=== PATIENT | female | born 1995 | race Hispanic/Latino ===

== ENCOUNTER → 2024-11-27 15:57 | Outpatient (CLI) | payer OTHER, SELFPAY ==
[2024-11-27 16:50] LABS: Add Manual Diff / Slide Review NO; Hematocrit 39.3 % (36-46); Hemoglobin 13.8 g/dL (12.0-16.0); Hemoglobin A1C% w Est Avg Glu 5.3 % (4.0-6.0); Lymphocytes Absolute Auto 2900 /uL (1100-4500); Mean Corpuscular HGB Conc 35.0 % (30-36); Mean Corpuscular Hemoglobin 29.4 PG (26-34); Mean Corpuscular Volume 84.1 fL (80-100); Platelet Count 299 X10^3/uL (150-400)
[2024-11-27 17:12] LABS: Blood Urea Nitrogen 10 mg/dL (7-17); Calcium 9.8 mg/dL (8.4-10.2); Carbon Dioxide 22 mmol/L (22-32); Chloride 102 mmol/L (98-107); Estimated Glomerular Filt Rate > 60 mL/min (>60); Glucose 93 mg/dL (70-99); HEMOLYSIS < 15 (0-50); Potassium 4.0 mmol/L (3.4-5.1); Sodium 136 mmol/L (137-145)
[2024-11-27 17:40] LABS: TSH w/ Reflex to FT4 3.32 uIU/mL (0.47-4.68)
== END ==
PROVIDERS: PCP Nurse Practitioner Family; Referring Provider Nurse Practitioner Family; Visit Provider Nurse Practitioner Family
DX: R35.89 Other polyuria (principal); R63.5 Abnormal weight gain; Z13.1 Encounter for screening for diabetes mellitus
CPT/HCPCS: 36415; 80048; 83036; 84443; 85025

== ENCOUNTER 2024-12-03 16:15 | Outpatient (RCR) | payer OTHER, SELFPAY ==
--- NOTE | 2024-07-22 16:56 | PT.OIE ---
Current Diagnoses Other sprain of left foot, subsequent encounter (07/22/24) Visit Care Team Role Provider Type Bethany Pedraza, SOLAR INSTALLATION HELPER-BC Attending Provider Advanced Inside Sales Engineer Primary Care Provider Referring Provider Specialty: Family Practice Address: [address] [place] [address], [id number] Phone: Fax: Email: [email or web address] Physical Therapy Initial Evaluation PT-OP-A Visit Information Start: 07/22/24 15:18 Freq: Status: Active Protocol: Document 07/22/24 15:19 WAREHOUSE PRODUCTION WORKER (Rec: 07/22/24 16:55 WAREHOUSE PRODUCTION WORKER Laptop) Out-Patient Physical Therapy Visit Information Visit Information Visit Type Initial Evaluation Visit Start Time 15:19 Visit Stop Time 16:15 Visit Number 1 Number of RECORD TABULATING CLERK Visits 0 Evaluation Information Evaluation Date 07/22/24 Precautions Precautions None PT-OP-B Current Condition Start: 07/22/24 15:18 Freq: Status: Active Protocol: Document 07/22/24 15:19 WAREHOUSE PRODUCTION WORKER (Rec: 07/22/24 16:55 WAREHOUSE PRODUCTION WORKER Laptop) Current Condition History of Current Condition Onset Date First sprain 2015, second sprain last year, third sprain last month Current Complaints L ankle pain and weakness History of Current Harriet amb into session without AD but wearing B ankle Condition boots, she reports wears boots for increased ankle support. Sprained my left foot 3 times now, last one was last month and I didn't do any exercises afterward. Has been doing day to day activities but unable to perform hobbies: slack lining, rock climbing, hiking, backpacking. Has been going to the gym and going up stairs which causes sharp pain at front of L foot while lifting toes up. Currently has sharp shooting pain in low back, reports back injury while in college with fall on stairs which took a while to recover from but never went to the doctor for it and is unsure if back pain and ankle injury are related. Treatment Goals Patient/Caregiver To strengthen my ankle and get some tips for how to Goals prevent future ankle sprains and how to decrease back pain. PT-OP-C Subjective Start: 07/22/24 15:18 Freq: Status: Active Protocol: Document 07/22/24 15:19 WAREHOUSE PRODUCTION WORKER (Rec: 07/22/24 16:55 WAREHOUSE PRODUCTION WORKER Laptop) Patient Questionnaires Lower Extremity Functional Scale LEFS Score 61/80 PT-OP-D Balance Start: 07/22/24 15:18 Freq: Status: Active Protocol: Document 07/22/24 15:19 WAREHOUSE PRODUCTION WORKER (Rec: 07/22/24 16:55 WAREHOUSE PRODUCTION WORKER Laptop) Balance Tests Single Limb Standing Single Limb- Right >1 min without instability Single Limb- Left 10s significant difficulty and lateral upper body sway/ reactions PT-OP-F Manual Assessment Start: 07/22/24 15:18 Freq: Status: Active Protocol: Document 07/22/24 15:19 WAREHOUSE PRODUCTION WORKER (Rec: 07/22/24 16:55 WAREHOUSE PRODUCTION WORKER Laptop) Manual Assessments Joint Mobility Assessment Joint Mobility Decreased PA of L talus at talocrural joint Assessment PT-OP-G Mobility & Gait Start: 07/22/24 15:18 Freq: Status: Active Protocol: Document 07/22/24 15:19 WAREHOUSE PRODUCTION WORKER (Rec: 07/22/24 16:55 WAREHOUSE PRODUCTION WORKER Laptop) OP Gait Assessment Comments Gait Comments Amb without AD, mild B knee varus, mild decreased pre swing on L PT-OP-K Range of Motion Start: 07/22/24 15:18 Freq: Status: Active Protocol: Document 07/22/24 15:19 WAREHOUSE PRODUCTION WORKER (Rec: 07/22/24 16:55 WAREHOUSE PRODUCTION WORKER Laptop) Hip Goniometric Range of Motion Hip ROM Limitations Hip ROM Limitations Soft Tissue Tightness Comments Baldev test: L 2.5 , R 2.5 Heel to butt: L 5.5, R 7.5 Ankle and Foot Goniometric Range of Motion Ankle and Foot L Testing Position Sitting Dorsiflexion with 0 Knee Extended Plantarflexion 34 Inversion 23 Eversion 15 R Testing Position Sitting Dorsiflexion with 5 Knee Extended Plantarflexion 47 Inversion 24 Eversion 17 PT-OP-M Strength Start: 07/22/24 15:18 Freq: Status: Active Protocol: Document 07/22/24 15:19 WAREHOUSE PRODUCTION WORKER (Rec: 07/22/24 16:55 WAREHOUSE PRODUCTION WORKER Laptop) Hip Strength Hip Manual Muscle Testing L Flexion (L2) 5 Normal Extension (S1) 4+ Good+ Abduction 4 Good R Flexion (L2) 4+ Good+ Extension (S1) 5 Normal Abduction 4 Good Knee Strength Knee Manual Muscle Testing L Flexion (S2) 4- Good- Extension (L3) 4+ Good+ R Flexion (S2) 4 Good Extension (L3) 5 Normal Ankle/Foot Strength Ankle and Foot Manual Muscle Testing L Dorsiflexion (L4) 4+ Good+ Inversion 4+ Good+ Eversion (S1) 4 Good R Dorsiflexion (L4) 5 Normal Inversion 5 Normal Eversion (S1) 5 Normal PT-OP-Q Treatments Start: 07/22/24 15:18 Freq: Status: Active Protocol: Document 07/22/24 15:19 WAREHOUSE PRODUCTION WORKER (Rec: 07/22/24 16:55 WAREHOUSE PRODUCTION WORKER Laptop) Therapeutic Exercises Standing Exercises Heel Raises Side bilateral Resistance body weight Reps/Minutes x15 BLEs Comments Added to HEP Stretch Standing Exercise 1. Quad stretch prop on chair 2. Gastroc runner's Name stretch Side bilateral Reps/Minutes 60s Comments Added to HEP, pain with L gastroc stretch at ant ankle PT-OP-T Assessment and Plan Start: 07/22/24 15:18 Freq: Status: Active Protocol: Document 07/22/24 15:19 WAREHOUSE PRODUCTION WORKER (Rec: 07/22/24 16:55 WAREHOUSE PRODUCTION WORKER Laptop) Physical Therapy Assessment Rehab Potential Rehabilitation Excellent Potential Evaluation Complexity Number of Personal 1-2 Factors/ Comorbidities Number of Body 3 Systems Impaired Clinical Stable Presentation at Evaluation Impairments Impairments Balance,Functional Activities,Functional Mobility,Gait, Pain,ROM,Soft Tissue Mobility,Strength Goals ROM Impairment ROM Impairment L ankle ROM Short Term Goal (STG Pt will improve L active DF from 0 degrees to 5 degrees ) to improve function STG Duration 6 weeks Back Shoe Cutter Goal (LTG) Pt will improve B active DF to 10 degrees for improved function LTG Duration 12 weeks 2 Impairment Strength Impairment BLE strength Short Term Goal (STG Pt will improve B hip abd strength, B hamstring ) strength, and L foot eversion to at least 4+/5 STG Duration 6 weeks Back Shoe Cutter Goal (LTG) Pt will amb 0.5 miles on 7% grade at 1.5 speed on treadmill without rest break without pain in L ankle to return to hiking. LTG Duration 12 weeks 1 Impairment Balance Impairment B SLS Short Term Goal (STG Pt will demonstrate improved balance and proprioception ) with L SLS on even floor for 60s to improve function and safety STG Duration 6 weeks Usp Goal (LTG) Pt will demonstrate improved balance and proprioception with L SLS on foam for 60s without upper body sway for improved function. LTG Duration 12 weeks Assessment Summary Assessment Pt presents to PT after 3 left ankle sprains with complaints of left ankle weakness and pain with excessive dorsiflexion and has been limited from performing hobbies such as hiking and backpacking, rock climbing, and slack lining. Pt found to have decreased strength of left ankle eversion, bilateral hamstrings, and bilateral hip abductors Pt also found to have decreased range of motion of L ankle dorsiflexion and plantarflexion and decreased bilateral quad length R>L and hamstring length. Pt also found to have decreased joint mobility of left talocrural joint and significantly decreased balance/proprioception to left ankle. Pt will highly benefit from skilled PT intervention to address deficits and improve function for return to hobby and prevent future injury. Physical Therapy Plan Frequency and Duration Frequency of 2x/Week Treatment Duration of 12 treatment (weeks) Plan of Care Start 07/22/24 Date Plan of Care End 10/14/24 Date Therapeutic Interventions Therapeutic Balance Training,Gait Training,Home Exercise Program, Interventions Joint Mobilizations,Manual Therapy,Neuromuscular Re- education,Soft Tissue Mobilization,Taping,Therapeutic Activities,Therapeutic Exercises Modalities Cold Pack/Ice Massage,Hot Packs,Ultrasound Next Visit Focus/Plan Next Note Type Treatment Note Next Visit Plan Assess HS length, HEP strengthening, gait, and stairs
--- NOTE | 2024-07-24 18:14 | PT.OTN ---
Current Diagnoses Other sprain of left foot, subsequent encounter (07/24/24) Physical Therapy Treatment Note PT-OP-A Visit Information Start: 07/22/24 15:18 Freq: Status: Active Protocol: Document 07/24/24 15:26 TOOL CRIB ATTENDANT (Rec: 07/24/24 16:12 TOOL CRIB ATTENDANT Laptop) Out-Patient Physical Therapy Visit Information Visit Information Visit Type Treatment Note Visit Start Time 15:22 Visit Stop Time 16:03 Visit Number 2 Number of WELDER TECH Visits 0 Evaluation Information Evaluation Date 07/22/24 Precautions Precautions None PT-OP-B Current Condition Start: 07/22/24 15:18 Freq: Status: Active Protocol: Document 07/22/24 15:19 TOOL CRIB ATTENDANT (Rec: 07/22/24 16:55 TOOL CRIB ATTENDANT Laptop) Current Condition History of Current Condition Onset Date First sprain 2015, second sprain last year, third sprain last month Current Complaints L ankle pain and weakness History of Current Harriet amb into session without AD but wearing B ankle Condition boots, she reports wears boots for increased ankle support. Sprained my left foot 3 times now, last one was last month and I didn't do any exercises afterward. Has been doing day to day activities but unable to perform hobbies: slack lining, rock climbing, hiking, backpacking. Has been going to the gym and going up stairs which causes sharp pain at front of L foot while lifting toes up. Currently has sharp shooting pain in low back, reports back injury while in college with fall on stairs which took a while to recover from but never went to the doctor for it and is unsure if back pain and ankle injury are related. Treatment Goals Patient/Caregiver To strengthen my ankle and get some tips for how to Goals prevent future ankle sprains and how to decrease back pain. PT-OP-C Subjective Start: 07/22/24 15:18 Freq: Status: Active Protocol: Document 07/24/24 15:26 TOOL CRIB ATTENDANT (Rec: 07/24/24 16:12 TOOL CRIB ATTENDANT Laptop) OP-PT Subjective Patient Comments Patient Comments Pt reports gastroc stretch against wall is painful to ant ankle but seems to get better with stretch. PT-OP-D Balance Start: 07/22/24 15:18 Freq: Status: Active Protocol: Document 07/22/24 15:19 TOOL CRIB ATTENDANT (Rec: 07/22/24 16:55 TOOL CRIB ATTENDANT Laptop) Balance Tests Single Limb Standing Single Limb- Right >1 min without instability Single Limb- Left 10s significant difficulty and lateral upper body sway/ reactions PT-OP-F Manual Assessment Start: 07/22/24 15:18 Freq: Status: Active Protocol: Document 07/22/24 15:19 TOOL CRIB ATTENDANT (Rec: 07/22/24 16:55 TOOL CRIB ATTENDANT Laptop) Manual Assessments Joint Mobility Assessment Joint Mobility Decreased PA of L talus at talocrural joint Assessment PT-OP-G Mobility & Gait Start: 07/22/24 15:18 Freq: Status: Active Protocol: Document 07/22/24 15:19 TOOL CRIB ATTENDANT (Rec: 07/22/24 16:55 TOOL CRIB ATTENDANT Laptop) OP Gait Assessment Comments Gait Comments Amb without AD, mild B knee varus, mild decreased pre swing on L PT-OP-K Range of Motion Start: 07/22/24 15:18 Freq: Status: Active Protocol: Document 07/22/24 15:19 TOOL CRIB ATTENDANT (Rec: 07/22/24 16:55 TOOL CRIB ATTENDANT Laptop) Hip Goniometric Range of Motion Hip ROM Limitations Hip ROM Limitations Soft Tissue Tightness Comments Baldev test: L 2.5 , R 2.5 Heel to butt: L 5.5, R 7.5 Ankle and Foot Goniometric Range of Motion Ankle and Foot L Testing Position Sitting Dorsiflexion with 0 Knee Extended Plantarflexion 34 Inversion 23 Eversion 15 R Testing Position Sitting Dorsiflexion with 5 Knee Extended Plantarflexion 47 Inversion 24 Eversion 17 PT-OP-M Strength Start: 07/22/24 15:18 Freq: Status: Active Protocol: Document 07/22/24 15:19 TOOL CRIB ATTENDANT (Rec: 07/22/24 16:55 TOOL CRIB ATTENDANT Laptop) Hip Strength Hip Manual Muscle Testing L Flexion (L2) 5 Normal Extension (S1) 4+ Good+ Abduction 4 Good R Flexion (L2) 4+ Good+ Extension (S1) 5 Normal Abduction 4 Good Knee Strength Knee Manual Muscle Testing L Flexion (S2) 4- Good- Extension (L3) 4+ Good+ R Flexion (S2) 4 Good Extension (L3) 5 Normal Ankle/Foot Strength Ankle and Foot Manual Muscle Testing L Dorsiflexion (L4) 4+ Good+ Inversion 4+ Good+ Eversion (S1) 4 Good R Dorsiflexion (L4) 5 Normal Inversion 5 Normal Eversion (S1) 5 Normal PT-OP-Q Treatments Start: 07/22/24 15:18 Freq: Status: Active Protocol: Document 07/24/24 15:26 TOOL CRIB ATTENDANT (Rec: 07/24/24 16:12 TOOL CRIB ATTENDANT Laptop) Therapeutic Exercises Sitting Exercises Towel Scrunch Sitting Exercise Intrinsic foot muscle strengthening Name Side left Reps/Minutes 10x2 4-way ankle Sitting Exercise DF, eversion, PF, inversion Name Side left Resistance L1 TB Reps/Minutes x10 without resist, x10 with TB Comments Added to HEP Manual Therapy Treatment Consent Patient gave verbal Yes consent for manual treatment Soft Tissue Mobilization Ankle Body Location lateral ankle Mobilization Type Instrument Assisted Intensity/Depth Moderate Body Position Supine Comments fibularis longus/brevis tendons and retinaculum Joint Mobilizations Talus Joint Talocrural Direction Ant>post Grade IV Body Position half kneel Reps/Duration 15x3 Comments Passive closed chain DF using hammer and tool to mobilize at points of restrictions and pain at ant/ medial/and lateral talus PT-OP-T Assessment and Plan Start: 07/22/24 15:18 Freq: Status: Active Protocol: Document 07/24/24 15:26 TOOL CRIB ATTENDANT (Rec: 07/24/24 16:12 TOOL CRIB ATTENDANT Laptop) Physical Therapy Assessment Impairments Impairments Balance,Functional Activities,Functional Mobility,Gait, Pain,ROM,Soft Tissue Mobility,Strength Goals ROM Impairment ROM Impairment L ankle ROM Short Term Goal (STG Pt will improve L active DF from 0 degrees to 5 degrees ) to improve function STG Duration 6 weeks Industrial Yard Brake Coupler Goal (LTG) Pt will improve B active DF to 10 degrees for improved function LTG Duration 12 weeks 2 Impairment Strength Impairment BLE strength Short Term Goal (STG Pt will improve B hip abd strength, B hamstring ) strength, and L foot eversion to at least 4+/5 STG Duration 6 weeks Industrial Yard Brake Coupler Goal (LTG) Pt will amb 0.5 miles on 7% grade at 1.5 speed on treadmill without rest break without pain in L ankle to return to hiking. LTG Duration 12 weeks 1 Impairment Balance Impairment B SLS Short Term Goal (STG Pt will demonstrate improved balance and proprioception ) with L SLS on even floor for 60s to improve function and safety STG Duration 6 weeks Long-Term Goal (LTG) Pt will demonstrate improved balance and proprioception with L SLS on foam for 60s without upper body sway for improved function. LTG Duration 12 weeks Progress Towards Goals Progress Towards Progressing Toward Goals Goals Assessment Summary Assessment Pt tolerated ankle exercises well with HEP given, noted improvement in DF after talus mobilizations and STM to achilles and medial and lateral post ankle. Physical Therapy Plan Frequency and Duration Frequency of 2x/Week Treatment Duration of 12 treatment (weeks) Plan of Care Start 07/22/24 Date Plan of Care End 10/14/24 Date Therapeutic Interventions Therapeutic Balance Training,Gait Training,Home Exercise Program, Interventions Joint Mobilizations,Manual Therapy,Neuromuscular Re- education,Soft Tissue Mobilization,Taping,Therapeutic Activities,Therapeutic Exercises Modalities Cold Pack/Ice Massage,Hot Packs,Ultrasound Next Visit Focus/Plan Next Note Type Treatment Note Next Visit Plan HEP hip strengthening, talus mobs with tool, STM to achilles and lateral to achilles, assess HS length, gait assess, stairs
--- NOTE | 2024-07-28 22:34 | PT.OTN ---
Current Diagnoses Other sprain of left foot, subsequent encounter (07/28/24) Physical Therapy Treatment Note PT-OP-A Visit Information Start: 07/22/24 15:18 Freq: Status: Active Protocol: Document 07/28/24 22:17 MANAGER ARMY (Rec: 07/28/24 22:34 MANAGER ARMY Laptop) Out-Patient Physical Therapy Visit Information Visit Information Visit Type Treatment Note Visit Start Time 15:35 Visit Stop Time 16:15 Visit Number 3 Number of STITCHING MACHINE SETTER Visits 0 Evaluation Information Evaluation Date 07/22/24 Precautions Precautions None PT-OP-B Current Condition Start: 07/22/24 15:18 Freq: Status: Active Protocol: Document 07/22/24 15:19 MANAGER ARMY (Rec: 07/22/24 16:55 MANAGER ARMY Laptop) Current Condition History of Current Condition Onset Date First sprain 2015, second sprain last year, third sprain last month Current Complaints L ankle pain and weakness History of Current Harriet amb into session without AD but wearing B ankle Condition boots, she reports wears boots for increased ankle support. Sprained my left foot 3 times now, last one was last month and I didn't do any exercises afterward. Has been doing day to day activities but unable to perform hobbies: slack lining, rock climbing, hiking, backpacking. Has been going to the gym and going up stairs which causes sharp pain at front of L foot while lifting toes up. Currently has sharp shooting pain in low back, reports back injury while in college with fall on stairs which took a while to recover from but never went to the doctor for it and is unsure if back pain and ankle injury are related. Treatment Goals Patient/Caregiver To strengthen my ankle and get some tips for how to Goals prevent future ankle sprains and how to decrease back pain. PT-OP-C Subjective Start: 07/22/24 15:18 Freq: Status: Active Protocol: Document 07/28/24 22:17 MANAGER ARMY (Rec: 07/28/24 22:34 MANAGER ARMY Laptop) OP-PT Subjective Patient Comments Patient Comments Pt reports ankle exercises are getting a little easier, still reports calf stretch is painful to ant foot PT-OP-D Balance Start: 07/22/24 15:18 Freq: Status: Active Protocol: Document 07/22/24 15:19 MANAGER ARMY (Rec: 07/22/24 16:55 MANAGER ARMY Laptop) Balance Tests Single Limb Standing Single Limb- Right >1 min without instability Single Limb- Left 10s significant difficulty and lateral upper body sway/ reactions PT-OP-F Manual Assessment Start: 07/22/24 15:18 Freq: Status: Active Protocol: Document 07/22/24 15:19 MANAGER [employer]MY (Rec: 07/22/24 16:55 MANAGER ARMY Laptop) Manual Assessments Joint Mobility Assessment Joint Mobility Decreased PA of L talus at talocrural joint Assessment PT-OP-G Mobility & Gait Start: 07/22/24 15:18 Freq: Status: Active Protocol: Document 07/22/24 15:19 MANAGER [employer]MY (Rec: 07/22/24 16:55 MANAGER ARMY Laptop) OP Gait Assessment Comments Gait Comments Amb without AD, mild B knee varus, mild decreased pre swing on L PT-OP-K Range of Motion Start: 07/22/24 15:18 Freq: Status: Active Protocol: Document 07/22/24 15:19 MANAGER ARMY (Rec: 07/22/24 16:55 MANAGER ARMY Laptop) Hip Goniometric Range of Motion Hip ROM Limitations Hip ROM Limitations Soft Tissue Tightness Comments Baldev test: L 2.5 , R 2.5 Heel to butt: L 5.5, R 7.5 Ankle and Foot Goniometric Range of Motion Ankle and Foot L Testing Position Sitting Dorsiflexion with 0 Knee Extended Plantarflexion 34 Inversion 23 Eversion 15 R Testing Position Sitting Dorsiflexion with 5 Knee Extended Plantarflexion 47 Inversion 24 Eversion 17 PT-OP-M Strength Start: 07/22/24 15:18 Freq: Status: Active Protocol: Document 07/22/24 15:19 MANAGER ARMY (Rec: 07/22/24 16:55 MANAGER ARMY Laptop) Hip Strength Hip Manual Muscle Testing L Flexion (L2) 5 Normal Extension (S1) 4+ Good+ Abduction 4 Good R Flexion (L2) 4+ Good+ Extension (S1) 5 Normal Abduction 4 Good Knee Strength Knee Manual Muscle Testing L Flexion (S2) 4- Good- Extension (L3) 4+ Good+ R Flexion (S2) 4 Good Extension (L3) 5 Normal Ankle/Foot Strength Ankle and Foot Manual Muscle Testing L Dorsiflexion (L4) 4+ Good+ Inversion 4+ Good+ Eversion (S1) 4 Good R Dorsiflexion (L4) 5 Normal Inversion 5 Normal Eversion (S1) 5 Normal PT-OP-Q Treatments Start: 07/22/24 15:18 Freq: Status: Active Protocol: Document 07/28/24 22:17 MANAGER ARMY (Rec: 07/28/24 22:34 MANAGER ARMY Laptop) Therapeutic Exercises Sitting Exercises Talus Self Mobs Sitting Exercise Passive DF with self mob of TB at taus Name Side left Resistance L2 TB Reps/Minutes x10 Comments Added to HEP Towel Scrunch Sitting Exercise Intrinsic foot muscle strengthening Name Side left Reps/Minutes 10x2 Comments Added to HEP Manual Therapy Treatment Consent Patient gave verbal Yes consent for manual treatment Joint Mobilizations Navicular Direction lateral glide Grade IV Body Position half kneel Reps/Duration 10x2 Comments foot secured on half foam roller into inversion with calcaneus anchored, lateral glide of navicular with hip ER Calcaneus Direction lateral to medial Grade IV Body Position Sidelying Reps/Duration x10 Comments over half foam roller to reduce ankle valgus Tibia Direction post Grade IV Body Position half kneel Reps/Duration 10x2 Comments Passive closed chain DF with blocking of ant translation of lateral distal tibia Talus Joint Talocrural Direction Ant>post Grade IV Body Position half kneel Reps/Duration 15x3 Comments Passive closed chain DF using hammer and tool to mobilize at points of restrictions and pain at ant/ medial/and lateral talus PT-OP-T Assessment and Plan Start: 07/22/24 15:18 Freq: Status: Active Protocol: Document 07/28/24 22:17 MANAGER ARMY (Rec: 07/28/24 22:34 MANAGER ARMY Laptop) Physical Therapy Assessment Impairments Impairments Balance,Functional Activities,Functional Mobility,Gait, Pain,ROM,Soft Tissue Mobility,Strength Goals ROM Impairment ROM Impairment L ankle ROM Short Term Goal (STG Pt will improve L active DF from 0 degrees to 5 degrees ) to improve function STG Duration 6 weeks Alf Goal (LTG) Pt will improve B active DF to 10 degrees for improved function LTG Duration 12 weeks 2 Impairment Strength Impairment BLE strength Short Term Goal (STG Pt will improve B hip abd strength, B hamstring ) strength, and L foot eversion to at least 4+/5 STG Duration 6 weeks Alf Goal (LTG) Pt will amb 0.5 miles on 7% grade at 1.5 speed on treadmill without rest break without pain in L ankle to return to hiking. LTG Duration 12 weeks 1 Impairment Balance Impairment B SLS Short Term Goal (STG Pt will demonstrate improved balance and proprioception ) with L SLS on even floor for 60s to improve function and safety STG Duration 6 weeks Alf Goal (LTG) Pt will demonstrate improved balance and proprioception with L SLS on foam for 60s without upper body sway for improved function. LTG Duration 12 weeks Progress Towards Goals Progress Towards Progressing Toward Goals Goals Assessment Summary Assessment Pt tolerated session well focused on mobilizations to talus, navicular, calcaneus, and tiba with improved DF from 5 degrees passive to 14 degrees passive at end of session. Physical Therapy Plan Frequency and Duration Frequency of 2x/Week Treatment Duration of 12 treatment (weeks) Plan of Care Start 07/22/24 Date Plan of Care End 10/14/24 Date Therapeutic Interventions Therapeutic Balance Training,Gait Training,Home Exercise Program, Interventions Joint Mobilizations,Manual Therapy,Neuromuscular Re- education,Soft Tissue Mobilization,Taping,Therapeutic Activities,Therapeutic Exercises Modalities Cold Pack/Ice Massage,Hot Packs,Ultrasound Next Visit Focus/Plan Next Note Type Treatment Note Next Visit Plan HEP hip strengthening, talus mobs with tool, calcaneal mob into valgus, navicular lateral mobs, taping for decreased edema
--- NOTE | 2024-07-30 20:37 | PT.OTN ---
Current Diagnoses Other sprain of left foot, subsequent encounter (07/30/24) Physical Therapy Treatment Note PT-OP-A Visit Information Start: 07/22/24 15:18 Freq: Status: Active Protocol: Document 07/30/24 20:21 UNSCRAMBLER (Rec: 07/30/24 20:37 UNSCRAMBLER Laptop) Out-Patient Physical Therapy Visit Information Visit Information Visit Type Treatment Note Visit Start Time 15:20 Visit Stop Time 16:20 Visit Number 4 Number of SR. SOCIAL MEDIA & MOBILE MANAGER Visits 0 Evaluation Information Evaluation Date 07/22/24 Precautions Precautions None PT-OP-B Current Condition Start: 07/22/24 15:18 Freq: Status: Active Protocol: Document 07/22/24 15:19 UNSCRAMBLER (Rec: 07/22/24 16:55 UNSCRAMBLER Laptop) Current Condition History of Current Condition Onset Date First sprain 2015, second sprain last year, third sprain last month Current Complaints L ankle pain and weakness History of Current Harriet amb into session without AD but wearing B ankle Condition boots, she reports wears boots for increased ankle support. Sprained my left foot 3 times now, last one was last month and I didn't do any exercises afterward. Has been doing day to day activities but unable to perform hobbies: slack lining, rock climbing, hiking, backpacking. Has been going to the gym and going up stairs which causes sharp pain at front of L foot while lifting toes up. Currently has sharp shooting pain in low back, reports back injury while in college with fall on stairs which took a while to recover from but never went to the doctor for it and is unsure if back pain and ankle injury are related. Treatment Goals Patient/Caregiver To strengthen my ankle and get some tips for how to Goals prevent future ankle sprains and how to decrease back pain. PT-OP-C Subjective Start: 07/22/24 15:18 Freq: Status: Active Protocol: Document 07/30/24 20:21 UNSCRAMBLER (Rec: 07/30/24 20:37 UNSCRAMBLER Laptop) OP-PT Subjective Patient Comments Patient Comments Pt reports L ant medial foot has felt more stiff and painful after last session but this morning felt a little more ROM in DF. Current pain 2/ PT-OP-D Balance Start: 07/22/24 15:18 Freq: Status: Active Protocol: Document 07/22/24 15:19 UNSCRAMBLER (Rec: 07/22/24 16:55 UNSCRAMBLER Laptop) Balance Tests Single Limb Standing Single Limb- Right >1 min without instability Single Limb- Left 10s significant difficulty and lateral upper body sway/ reactions PT-OP-F Manual Assessment Start: 07/22/24 15:18 Freq: Status: Active Protocol: Document 07/22/24 15:19 UNSCRAMBLER (Rec: 07/22/24 16:55 UNSCRAMBLER Laptop) Manual Assessments Joint Mobility Assessment Joint Mobility Decreased PA of L talus at talocrural joint Assessment PT-OP-G Mobility & Gait Start: 07/22/24 15:18 Freq: Status: Active Protocol: Document 07/22/24 15:19 UNSCRAMBLER (Rec: 07/22/24 16:55 UNSCRAMBLER Laptop) OP Gait Assessment Comments Gait Comments Amb without AD, mild B knee varus, mild decreased pre swing on L PT-OP-K Range of Motion Start: 07/22/24 15:18 Freq: Status: Active Protocol: Document 07/22/24 15:19 UNSCRAMBLER (Rec: 07/22/24 16:55 UNSCRAMBLER Laptop) Hip Goniometric Range of Motion Hip ROM Limitations Hip ROM Limitations Soft Tissue Tightness Comments Baldev test: L 2.5 , R 2.5 Heel to butt: L 5.5, R 7.5 Ankle and Foot Goniometric Range of Motion Ankle and Foot L Testing Position Sitting Dorsiflexion with 0 Knee Extended Plantarflexion 34 Inversion 23 Eversion 15 R Testing Position Sitting Dorsiflexion with 5 Knee Extended Plantarflexion 47 Inversion 24 Eversion 17 PT-OP-M Strength Start: 07/22/24 15:18 Freq: Status: Active Protocol: Document 07/22/24 15:19 UNSCRAMBLER (Rec: 07/22/24 16:55 UNSCRAMBLER Laptop) Hip Strength Hip Manual Muscle Testing L Flexion (L2) 5 Normal Extension (S1) 4+ Good+ Abduction 4 Good R Flexion (L2) 4+ Good+ Extension (S1) 5 Normal Abduction 4 Good Knee Strength Knee Manual Muscle Testing L Flexion (S2) 4- Good- Extension (L3) 4+ Good+ R Flexion (S2) 4 Good Extension (L3) 5 Normal Ankle/Foot Strength Ankle and Foot Manual Muscle Testing L Dorsiflexion (L4) 4+ Good+ Inversion 4+ Good+ Eversion (S1) 4 Good R Dorsiflexion (L4) 5 Normal Inversion 5 Normal Eversion (S1) 5 Normal PT-OP-Q Treatments Start: 07/22/24 15:18 Freq: Status: Active Protocol: Document 07/30/24 20:21 UNSCRAMBLER (Rec: 07/30/24 20:37 UNSCRAMBLER Laptop) Manual Therapy Treatment Consent Patient gave verbal Yes consent for manual treatment Soft Tissue Mobilization Plantar fascia Body Location L Mobilization Type Instrument Assisted Intensity/Depth Moderate Body Position Prone Comments mod-high amounts of crepitus over fascia improved with tool Joint Mobilizations Tibia Joint tib and fib Direction post tib and ant fib Grade III Body Position half kneel Reps/Duration x10 Comments passive closed chain DF with blocking of medial malleolus and ant mob of lateral malleolus Talus Joint Talocrural Direction Ant>post Grade IV Body Position Supine Reps/Duration 10x2 Comments passive open chain DF while performing manual mobs Taping Edema Body Location L ant and lateral ankle Treatment Focus edema method Type of Tape KT Comments 1st strip: 1 anchor piece above talocrural joint lint with 4 strips without tension wrapping ant foot over areas of increased edema 2nd strip: cut same as 1st and anchored at medial ankle and crossing over 1st strip over areas of edema PT-OP-T Assessment and Plan Start: 07/22/24 15:18 Freq: Status: Active Protocol: Document 07/30/24 20:21 UNSCRAMBLER (Rec: 07/30/24 20:37 UNSCRAMBLER Laptop) Physical Therapy Assessment Impairments Impairments Balance,Functional Activities,Functional Mobility,Gait, Pain,ROM,Soft Tissue Mobility,Strength Goals ROM Impairment ROM Impairment L ankle ROM Short Term Goal (STG Pt will improve L active DF from 0 degrees to 5 degrees ) to improve function STG Duration 6 weeks Residential Goal (LTG) Pt will improve B active DF to 10 degrees for improved function LTG Duration 12 weeks 2 Impairment Strength Impairment BLE strength Short Term Goal (STG Pt will improve B hip abd strength, B hamstring ) strength, and L foot eversion to at least 4+/5 STG Duration 6 weeks Residential Goal (LTG) Pt will amb 0.5 miles on 7% grade at 1.5 speed on treadmill without rest break without pain in L ankle to return to hiking. LTG Duration 12 weeks 1 Impairment Balance Impairment B SLS Short Term Goal (STG Pt will demonstrate improved balance and proprioception ) with L SLS on even floor for 60s to improve function and safety STG Duration 6 weeks Slip Cover Estimator Goal (LTG) Pt will demonstrate improved balance and proprioception with L SLS on foam for 60s without upper body sway for improved function. LTG Duration 12 weeks Progress Towards Goals Progress Towards Progressing Toward Goals Goals Assessment Summary Assessment Pt with improved passive DF from 15 degrees to 18 degrees after tibia and fibular mobilizations. Slight increased edema than last session, KT taping added for edema control to improve ROM. Physical Therapy Plan Frequency and Duration Frequency of 2x/Week Treatment Duration of 12 treatment (weeks) Plan of Care Start 07/22/24 Date Plan of Care End 10/14/24 Date Therapeutic Interventions Therapeutic Balance Training,Gait Training,Home Exercise Program, Interventions Joint Mobilizations,Manual Therapy,Neuromuscular Re- education,Soft Tissue Mobilization,Taping,Therapeutic Activities,Therapeutic Exercises Modalities Cold Pack/Ice Massage,Hot Packs,Ultrasound Next Visit Focus/Plan Next Note Type Treatment Note Next Visit Plan HEP hip strengthening, talus mobs with tool, calcaneal mob into valgus, navicular lateral mobs, taping for decreased edema, arch training exercises
--- NOTE | 2024-08-04 12:22 | PT.OTN ---
Current Diagnoses Other sprain of left foot, subsequent encounter (08/04/24) Physical Therapy Treatment Note PT-OP-A Visit Information Start: 07/22/24 15:18 Freq: Status: Active Protocol: Document 08/04/24 11:36 AB (Rec: 08/04/24 12:22 AB Laptop) Out-Patient Physical Therapy Visit Information Visit Information Visit Type Treatment Note Visit Note Access Code: [email or web address] Visit Start Time 11:36 Visit Stop Time 12:20 Visit Number 5 Number of NURSE CASE MANAGER Visits 1 PT-OP-B Current Condition Start: 07/22/24 15:18 Freq: Status: Active Protocol: Document 07/22/24 15:19 BIG DATA HADOOP DEVELOPER (Rec: 07/22/24 16:55 BIG DATA HADOOP DEVELOPER Laptop) Current Condition History of Current Condition Onset Date First sprain 2015, second sprain last year, third sprain last month Current Complaints L ankle pain and weakness History of Current Harriet amb into session without AD but wearing B ankle Condition boots, she reports wears boots for increased ankle support. Sprained my left foot 3 times now, last one was last month and I didn't do any exercises afterward. Has been doing day to day activities but unable to perform hobbies: slack lining, rock climbing, hiking, backpacking. Has been going to the gym and going up stairs which causes sharp pain at front of L foot while lifting toes up. Currently has sharp shooting pain in low back, reports back injury while in college with fall on stairs which took a while to recover from but never went to the doctor for it and is unsure if back pain and ankle injury are related. Treatment Goals Patient/Caregiver To strengthen my ankle and get some tips for how to Goals prevent future ankle sprains and how to decrease back pain. PT-OP-C Subjective Start: 07/22/24 15:18 Freq: Status: Active Protocol: Document 08/04/24 11:36 AB (Rec: 08/04/24 12:22 AB Laptop) OP-PT Subjective Patient Comments Patient Comments Patient reports, pain, strength and mobility are a little better. Patient rates pain 1/10 ambulating into session without device. SLS 15 + sec with LOB post 15 sec with head turn immediately, ipsilateral trunk side bed intermittent first 5-10 sec. PT-OP-D Balance Start: 07/22/24 15:18 Freq: Status: Active Protocol: Document 07/22/24 15:19 BIG DATA HADOOP DEVELOPER (Rec: 07/22/24 16:55 BIG DATA HADOOP DEVELOPER Laptop) Balance Tests Single Limb Standing Single Limb- Right >1 min without instability Single Limb- Left 10s significant difficulty and lateral upper body sway/ reactions PT-OP-F Manual Assessment Start: 07/22/24 15:18 Freq: Status: Active Protocol: Document 07/22/24 15:19 BIG DATA HADOOP DEVELOPER (Rec: 07/22/24 16:55 BIG DATA HADOOP DEVELOPER Laptop) Manual Assessments Joint Mobility Assessment Joint Mobility Decreased PA of L talus at talocrural joint Assessment PT-OP-G Mobility & Gait Start: 07/22/24 15:18 Freq: Status: Active Protocol: Document 07/22/24 15:19 BIG DATA HADOOP DEVELOPER (Rec: 07/22/24 16:55 BIG DATA HADOOP DEVELOPER Laptop) OP Gait Assessment Comments Gait Comments Amb without AD, mild B knee varus, mild decreased pre swing on L PT-OP-K Range of Motion Start: 07/22/24 15:18 Freq: Status: Active Protocol: Document 07/22/24 15:19 BIG DATA HADOOP DEVELOPER (Rec: 07/22/24 16:55 BIG DATA HADOOP DEVELOPER Laptop) Hip Goniometric Range of Motion Hip ROM Limitations Hip ROM Limitations Soft Tissue Tightness Comments Baldev test: L 2.5 , R 2.5 Heel to butt: L 5.5, R 7.5 Ankle and Foot Goniometric Range of Motion Ankle and Foot L Testing Position Sitting Dorsiflexion with 0 Knee Extended Plantarflexion 34 Inversion 23 Eversion 15 R Testing Position Sitting Dorsiflexion with 5 Knee Extended Plantarflexion 47 Inversion 24 Eversion 17 PT-OP-M Strength Start: 07/22/24 15:18 Freq: Status: Active Protocol: Document 07/22/24 15:19 BIG DATA HADOOP DEVELOPER (Rec: 07/22/24 16:55 BIG DATA HADOOP DEVELOPER Laptop) Hip Strength Hip Manual Muscle Testing L Flexion (L2) 5 Normal Extension (S1) 4+ Good+ Abduction 4 Good R Flexion (L2) 4+ Good+ Extension (S1) 5 Normal Abduction 4 Good Knee Strength Knee Manual Muscle Testing L Flexion (S2) 4- Good- Extension (L3) 4+ Good+ R Flexion (S2) 4 Good Extension (L3) 5 Normal Ankle/Foot Strength Ankle and Foot Manual Muscle Testing L Dorsiflexion (L4) 4+ Good+ Inversion 4+ Good+ Eversion (S1) 4 Good R Dorsiflexion (L4) 5 Normal Inversion 5 Normal Eversion (S1) 5 Normal PT-OP-Q Treatments Start: 07/22/24 15:18 Freq: Status: Active Protocol: Document 08/04/24 11:36 AB (Rec: 08/04/24 12:22 AB Laptop) Therapeutic Exercises Sitting Exercises AROM DF Reps/Minutes X 15 Comments verbal and visual cues Standing Exercises Glute med isometric Standing Exercise HEP Name Side bilateral Reps/Minutes one min each side Comments verbal and visual cues squat Standing Exercise HEP Name Side bilateral Reps/Minutes X 10 X 2 send set with level 4 band above knees Comments Hip hinge training, self tact cues for hip hinge Stretch Standing Exercise gastroc and soleus on stairs Name Side bilateral Reps/Minutes 60s x 2 each LE Comments post manual Manual Therapy Treatment Consent Patient gave verbal Yes consent for manual treatment Soft Tissue Mobilization Ankle Body Location L calf muscles Mobilization Type Cross-Friction,Instrument Assisted,Rolling Intensity/Depth Moderate Body Position Prone Comments and standing AROM DF PF prone with cupping and with heel raises on step Joint Mobilizations Tibia Joint tib and fib Direction post tib and ant fib Grade III Body Position seated Reps/Duration x10 seated and X 10 stand Talus Joint MWM TC mob X 10 then X 5 Direction ant to post Grade IV PT-OP-T Assessment and Plan Start: 07/22/24 15:18 Freq: Status: Active Protocol: Document 08/04/24 11:36 AB (Rec: 08/04/24 12:22 AB Laptop) Physical Therapy Assessment Goals ROM Impairment ROM Impairment L ankle ROM Short Term Goal (STG Pt will improve L active DF from 0 degrees to 5 degrees ) to improve function STG Duration 6 weeks Mcc Goal (LTG) Pt will improve B active DF to 10 degrees for improved function LTG Duration 12 weeks 2 Impairment Strength Impairment BLE strength Short Term Goal (STG Pt will improve B hip abd strength, B hamstring ) strength, and L foot eversion to at least 4+/5 STG Duration 6 weeks Mcc Goal (LTG) Pt will amb 0.5 miles on 7% grade at 1.5 speed on treadmill without rest break without pain in L ankle to return to hiking. LTG Duration 12 weeks 1 Impairment Balance Impairment B SLS Short Term Goal (STG Pt will demonstrate improved balance and proprioception ) with L SLS on even floor for 60s to improve function and safety STG Duration 6 weeks Associate Professor Computer Science Goal (LTG) Pt will demonstrate improved balance and proprioception with L SLS on foam for 60s without upper body sway for improved function. LTG Duration 12 weeks Assessment Summary Assessment Patient reports ankle pain continues to be 1/10 ambulating out of session L LE, comments she can feel it in her glutes. Noted immed LOB with head turns attempt 6 sec into SLS end of session. Physical Therapy Plan Frequency and Duration Frequency of 2x/Week Treatment Duration of 12 treatment (weeks) Plan of Care Start 07/22/24 Date Plan of Care End 10/14/24 Date Next Visit Focus/Plan Next Note Type Treatment Note Next Visit Plan HEP hip strengthening, talus mobs with tool, calcaneal mob into valgus, navicular lateral mobs, taping for decreased edema, arch training exercises
--- NOTE | 2024-08-06 13:36 | PT.OTN ---
Current Diagnoses Other sprain of left foot, subsequent encounter (08/06/24) Physical Therapy Treatment Note PT-OP-A Visit Information Start: 07/22/24 15:18 Freq: Status: Active Protocol: Document 08/06/24 07:31 BINDER LAYER (Rec: 08/06/24 08:19 BINDER LAYER Laptop) Out-Patient Physical Therapy Visit Information Visit Information Visit Type Treatment Note Visit Start Time 07:31 Visit Stop Time 08:18 Visit Number 6 Number of BUS DISPATCHER INTERSTATE Visits 0 Evaluation Information Evaluation Date 07/22/24 Precautions Precautions None PT-OP-B Current Condition Start: 07/22/24 15:18 Freq: Status: Active Protocol: Document 07/22/24 15:19 BINDER LAYER (Rec: 07/22/24 16:55 BINDER LAYER Laptop) Current Condition History of Current Condition Onset Date First sprain 2015, second sprain last year, third sprain last month Current Complaints L ankle pain and weakness History of Current Harriet amb into session without AD but wearing B ankle Condition boots, she reports wears boots for increased ankle support. Sprained my left foot 3 times now, last one was last month and I didn't do any exercises afterward. Has been doing day to day activities but unable to perform hobbies: slack lining, rock climbing, hiking, backpacking. Has been going to the gym and going up stairs which causes sharp pain at front of L foot while lifting toes up. Currently has sharp shooting pain in low back, reports back injury while in college with fall on stairs which took a while to recover from but never went to the doctor for it and is unsure if back pain and ankle injury are related. Treatment Goals Patient/Caregiver To strengthen my ankle and get some tips for how to Goals prevent future ankle sprains and how to decrease back pain. PT-OP-C Subjective Start: 07/22/24 15:18 Freq: Status: Active Protocol: Document 08/06/24 07:31 BINDER LAYER (Rec: 08/06/24 08:19 BINDER LAYER Laptop) OP-PT Subjective Patient Comments Patient Comments Pt reports no change in ankle, still reports pain to L ankle at 1/10. Did not yet get a chance to practice new HEP given at last session. PT-OP-D Balance Start: 07/22/24 15:18 Freq: Status: Active Protocol: Document 07/22/24 15:19 BINDER LAYER (Rec: 07/22/24 16:55 BINDER LAYER Laptop) Balance Tests Single Limb Standing Single Limb- Right >1 min without instability Single Limb- Left 10s significant difficulty and lateral upper body sway/ reactions PT-OP-F Manual Assessment Start: 07/22/24 15:18 Freq: Status: Active Protocol: Document 07/22/24 15:19 BINDER LAYER (Rec: 07/22/24 16:55 BINDER LAYER Laptop) Manual Assessments Joint Mobility Assessment Joint Mobility Decreased PA of L talus at talocrural joint Assessment PT-OP-G Mobility & Gait Start: 07/22/24 15:18 Freq: Status: Active Protocol: Document 07/22/24 15:19 BINDER LAYER (Rec: 07/22/24 16:55 BINDER LAYER Laptop) OP Gait Assessment Comments Gait Comments Amb without AD, mild B knee varus, mild decreased pre swing on L PT-OP-K Range of Motion Start: 07/22/24 15:18 Freq: Status: Active Protocol: Document 07/22/24 15:19 BINDER LAYER (Rec: 07/22/24 16:55 BINDER LAYER Laptop) Hip Goniometric Range of Motion Hip ROM Limitations Hip ROM Limitations Soft Tissue Tightness Comments Baldev test: L 2.5 , R 2.5 Heel to butt: L 5.5, R 7.5 Ankle and Foot Goniometric Range of Motion Ankle and Foot L Testing Position Sitting Dorsiflexion with 0 Knee Extended Plantarflexion 34 Inversion 23 Eversion 15 R Testing Position Sitting Dorsiflexion with 5 Knee Extended Plantarflexion 47 Inversion 24 Eversion 17 PT-OP-M Strength Start: 07/22/24 15:18 Freq: Status: Active Protocol: Document 07/22/24 15:19 BINDER LAYER (Rec: 07/22/24 16:55 BINDER LAYER Laptop) Hip Strength Hip Manual Muscle Testing L Flexion (L2) 5 Normal Extension (S1) 4+ Good+ Abduction 4 Good R Flexion (L2) 4+ Good+ Extension (S1) 5 Normal Abduction 4 Good Knee Strength Knee Manual Muscle Testing L Flexion (S2) 4- Good- Extension (L3) 4+ Good+ R Flexion (S2) 4 Good Extension (L3) 5 Normal Ankle/Foot Strength Ankle and Foot Manual Muscle Testing L Dorsiflexion (L4) 4+ Good+ Inversion 4+ Good+ Eversion (S1) 4 Good R Dorsiflexion (L4) 5 Normal Inversion 5 Normal Eversion (S1) 5 Normal PT-OP-Q Treatments Start: 07/22/24 15:18 Freq: Status: Active Protocol: Document 08/06/24 07:31 BINDER LAYER (Rec: 08/06/24 08:19 BINDER LAYER Laptop) Therapeutic Exercises Sitting Exercises Intrinsic foot Sitting Exercise 1. arch raises 2. 5 toe raises 3. first toe raises 4. 2 Name -5 toe raises Side left Reps/Minutes x10 each Comments TC for form/keep first ray down, Added to HEP with HO Manual Therapy Treatment Consent Patient gave verbal Yes consent for manual treatment Joint Mobilizations Medial Cuneiform Joint L ankle Direction med>lateral Grade IV Body Position Supine Reps/Duration x10 Comments calcaneus locked and forefoot abd on half foam roller with hip ER muscle energy Calcaneus Joint R ankle Direction lateral to medial Grade IV Body Position Sidelying Reps/Duration x10 Comments over half foam roller to reduce ankle valgus Tibia Joint L tib and fib Direction post tib and ant fib Grade III Body Position half kneel Talus Joint L talocrural Direction ant to post/medial Grade IV Body Position Half kneel Reps/Duration 10x3 Comments with hammer PT-OP-T Assessment and Plan Start: 07/22/24 15:18 Freq: Status: Active Protocol: Document 08/06/24 07:31 BINDER LAYER (Rec: 08/06/24 08:19 BINDER LAYER Laptop) Physical Therapy Assessment Impairments Impairments Balance,Functional Activities,Functional Mobility,Gait, Pain,ROM,Soft Tissue Mobility,Strength Goals ROM Impairment ROM Impairment L ankle ROM Short Term Goal (STG Pt will improve L active DF from 0 degrees to 5 degrees ) to improve function STG Duration 6 weeks Catheter Builder Goal (LTG) Pt will improve B active DF to 10 degrees for improved function LTG Duration 12 weeks 2 Impairment Strength Impairment BLE strength Short Term Goal (STG Pt will improve B hip abd strength, B hamstring ) strength, and L foot eversion to at least 4+/5 STG Duration 6 weeks Catheter Builder Goal (LTG) Pt will amb 0.5 miles on 7% grade at 1.5 speed on treadmill without rest break without pain in L ankle to return to hiking. LTG Duration 12 weeks 1 Impairment Balance Impairment B SLS Short Term Goal (STG Pt will demonstrate improved balance and proprioception ) with L SLS on even floor for 60s to improve function and safety STG Duration 6 weeks Catheter Builder Goal (LTG) Pt will demonstrate improved balance and proprioception with L SLS on foam for 60s without upper body sway for improved function. LTG Duration 12 weeks Progress Towards Goals Progress Towards Progressing Toward Goals Goals Assessment Summary Assessment Pt tolerated mobilizations well with slight improved medial DF noted than 2 sessions ago, is progressing but continue working on joint mobs and intrinsic foot strengthening with HO given this session. Physical Therapy Plan Frequency and Duration Frequency of 2x/Week Treatment Duration of 12 treatment (weeks) Plan of Care Start 07/22/24 Date Plan of Care End 10/14/24 Date Therapeutic Interventions Therapeutic Balance Training,Gait Training,Home Exercise Program, Interventions Joint Mobilizations,Manual Therapy,Neuromuscular Re- education,Soft Tissue Mobilization,Taping,Therapeutic Activities,Therapeutic Exercises Modalities Cold Pack/Ice Massage,Hot Packs,Ultrasound Next Visit Focus/Plan Next Note Type Treatment Note Next Visit Plan HEP hip strengthening, talus mobs with tool, calcaneal mob into valgus, navicular lateral mobs, taping for decreased edema, review HEP arch training exercises
--- NOTE | 2024-08-12 17:00 | PT.OTN ---
Current Diagnoses Other sprain of left foot, subsequent encounter (08/12/24) Physical Therapy Treatment Note PT-OP-A Visit Information Start: 07/22/24 15:18 Freq: Status: Active Protocol: Document 08/12/24 16:36 BASKET GRADER (Rec: 08/12/24 17:00 BASKET GRADER Laptop) Out-Patient Physical Therapy Visit Information Visit Information Visit Type Treatment Note Visit Start Time 15:23 Visit Stop Time 16:10 Visit Number 7 Number of POULTRY DRESSING WORKER Visits 0 Evaluation Information Evaluation Date 07/22/24 Precautions Precautions None PT-OP-B Current Condition Start: 07/22/24 15:18 Freq: Status: Active Protocol: Document 07/22/24 15:19 BASKET GRADER (Rec: 07/22/24 16:55 BASKET GRADER Laptop) Current Condition History of Current Condition Onset Date First sprain 2015, second sprain last year, third sprain last month Current Complaints L ankle pain and weakness History of Current Harriet amb into session without AD but wearing B ankle Condition boots, she reports wears boots for increased ankle support. Sprained my left foot 3 times now, last one was last month and I didn't do any exercises afterward. Has been doing day to day activities but unable to perform hobbies: slack lining, rock climbing, hiking, backpacking. Has been going to the gym and going up stairs which causes sharp pain at front of L foot while lifting toes up. Currently has sharp shooting pain in low back, reports back injury while in college with fall on stairs which took a while to recover from but never went to the doctor for it and is unsure if back pain and ankle injury are related. Treatment Goals Patient/Caregiver To strengthen my ankle and get some tips for how to Goals prevent future ankle sprains and how to decrease back pain. PT-OP-C Subjective Start: 07/22/24 15:18 Freq: Status: Active Protocol: Document 08/12/24 16:36 BASKET GRADER (Rec: 08/12/24 17:00 BASKET GRADER Laptop) OP-PT Subjective Patient Comments Patient Comments Pt reports current pain 1/10 to L ant medial ankle, reports no change in pain/ROM. Has been working on intrinsic foot exercises and reports they are going well PT-OP-D Balance Start: 07/22/24 15:18 Freq: Status: Active Protocol: Document 07/22/24 15:19 BASKET GRADER (Rec: 07/22/24 16:55 BASKET GRADER Laptop) Balance Tests Single Limb Standing Single Limb- Right >1 min without instability Single Limb- Left 10s significant difficulty and lateral upper body sway/ reactions PT-OP-F Manual Assessment Start: 07/22/24 15:18 Freq: Status: Active Protocol: Document 07/22/24 15:19 BASKET GRADER (Rec: 07/22/24 16:55 BASKET GRADER Laptop) Manual Assessments Joint Mobility Assessment Joint Mobility Decreased PA of L talus at talocrural joint Assessment PT-OP-G Mobility & Gait Start: 07/22/24 15:18 Freq: Status: Active Protocol: Document 07/22/24 15:19 BASKET GRADER (Rec: 07/22/24 16:55 BASKET GRADER Laptop) OP Gait Assessment Comments Gait Comments Amb without AD, mild B knee varus, mild decreased pre swing on L PT-OP-K Range of Motion Start: 07/22/24 15:18 Freq: Status: Active Protocol: Document 07/22/24 15:19 BASKET GRADER (Rec: 07/22/24 16:55 BASKET GRADER Laptop) Hip Goniometric Range of Motion Hip ROM Limitations Hip ROM Limitations Soft Tissue Tightness Comments Baldev test: L 2.5 , R 2.5 Heel to butt: L 5.5, R 7.5 Ankle and Foot Goniometric Range of Motion Ankle and Foot L Testing Position Sitting Dorsiflexion with 0 Knee Extended Plantarflexion 34 Inversion 23 Eversion 15 R Testing Position Sitting Dorsiflexion with 5 Knee Extended Plantarflexion 47 Inversion 24 Eversion 17 PT-OP-M Strength Start: 07/22/24 15:18 Freq: Status: Active Protocol: Document 07/22/24 15:19 BASKET GRADER (Rec: 07/22/24 16:55 BASKET GRADER Laptop) Hip Strength Hip Manual Muscle Testing L Flexion (L2) 5 Normal Extension (S1) 4+ Good+ Abduction 4 Good R Flexion (L2) 4+ Good+ Extension (S1) 5 Normal Abduction 4 Good Knee Strength Knee Manual Muscle Testing L Flexion (S2) 4- Good- Extension (L3) 4+ Good+ R Flexion (S2) 4 Good Extension (L3) 5 Normal Ankle/Foot Strength Ankle and Foot Manual Muscle Testing L Dorsiflexion (L4) 4+ Good+ Inversion 4+ Good+ Eversion (S1) 4 Good R Dorsiflexion (L4) 5 Normal Inversion 5 Normal Eversion (S1) 5 Normal PT-OP-Q Treatments Start: 07/22/24 15:18 Freq: Status: Active Protocol: Document 08/12/24 16:36 BASKET GRADER (Rec: 08/12/24 17:00 BASKET GRADER Laptop) Cardio Equipment Recumbent Stepper (Sci-Fit) Duration (Minutes) 5 Resistance L3 Seat Position 3 Other NuStep BLEs in pain free range, keeping L heel down Therapeutic Exercises Sidelying Exercises Clamshells Side bilateral Resistance gravity Reps/Minutes 10x2 each side Comments min VC to prevent hip roll back Standing Exercises DF Standing Exercise closed chain on stair with L4 TB mob at talus Name Side left Reps/Minutes 10x2 Comments increased pain to L ant ankle from 1>2/10 Manual Therapy Treatment Consent Patient gave verbal Yes consent for manual treatment Joint Mobilizations Medial Cuneiform Joint L ankle Direction med>lateral Grade IV Body Position Supine Reps/Duration x10 Comments calcaneus locked and forefoot add on half foam roller with hip ER muscle energy Tibia Joint L tib and fib Direction post tib and ant fib Grade III Body Position half kneel Reps/Duration 10x2 Talus Joint L talocrural medial side Direction ant to post/medial Grade IV Body Position Half kneel Reps/Duration 10x3 Comments with hammer, 17 degrees DF before, 17 degrees DF after PT-OP-T Assessment and Plan Start: 07/22/24 15:18 Freq: Status: Active Protocol: Document 08/12/24 16:36 BASKET GRADER (Rec: 08/12/24 17:00 BASKET GRADER Laptop) Physical Therapy Assessment Impairments Impairments Balance,Functional Activities,Functional Mobility,Gait, Pain,ROM,Soft Tissue Mobility,Strength Goals ROM Impairment ROM Impairment L ankle ROM Short Term Goal (STG Pt will improve L active DF from 0 degrees to 5 degrees ) to improve function STG Duration 6 weeks Residential Goal (LTG) Pt will improve B active DF to 10 degrees for improved function LTG Duration 12 weeks Assessment Summary Assessment Pt continues to have restricted ROM and pain to ant medial L ankle without change in ROM after tib, talus, and cuneiform mobilizations done and pt with increased pain to L ankle from 1 to 2 after session. Physical Therapy Plan Frequency and Duration Frequency of 2x/Week Treatment Duration of 12 treatment (weeks) Plan of Care Start 07/22/24 Plan of Care End 10/14/24 Date Therapeutic Interventions Therapeutic Balance Training,Gait Training,Home Exercise Program, Interventions Joint Mobilizations,Manual Therapy,Neuromuscular Re- education,Soft Tissue Mobilization,Taping,Therapeutic Activities,Therapeutic Exercises Modalities Cold Pack/Ice Massage,Hot Packs,Ultrasound Next Visit Focus/Plan Next Note Type Treatment Note Next Visit Plan taping for edema to L ankle, review intrinsic foot exercises, condense HEP, add B hip strengthening HEP
--- NOTE | 2024-08-13 18:19 | PT.OTN ---
Current Diagnoses Other sprain of left foot, subsequent encounter (08/12/24) Physical Therapy Treatment Note PT-OP-A Visit Information Start: 07/22/24 15:18 Freq: Status: Active Protocol: Document 08/13/24 17:06 SILVER BUFFER (Rec: 08/13/24 18:04 SILVER BUFFER Laptop) Out-Patient Physical Therapy Visit Information Visit Information Visit Type Treatment Note Visit Start Time 17:06 Visit Stop Time 17:55 Visit Number 8 Number of DRAIN TILE MACHINE OPERATOR Visits 0 Evaluation Information Evaluation Date 07/22/24 Precautions Precautions None PT-OP-B Current Condition Start: 07/22/24 15:18 Freq: Status: Active Protocol: Document 07/22/24 15:19 SILVER BUFFER (Rec: 07/22/24 16:55 SILVER BUFFER Laptop) Current Condition History of Current Condition Onset Date First sprain 2015, second sprain last year, third sprain last month Current Complaints L ankle pain and weakness History of Current Harriet amb into session without AD but wearing B ankle Condition boots, she reports wears boots for increased ankle support. Sprained my left foot 3 times now, last one was last month and I didn't do any exercises afterward. Has been doing day to day activities but unable to perform hobbies: slack lining, rock climbing, hiking, backpacking. Has been going to the gym and going up stairs which causes sharp pain at front of L foot while lifting toes up. Currently has sharp shooting pain in low back, reports back injury while in college with fall on stairs which took a while to recover from but never went to the doctor for it and is unsure if back pain and ankle injury are related. Treatment Goals Patient/Caregiver To strengthen my ankle and get some tips for how to Goals prevent future ankle sprains and how to decrease back pain. PT-OP-C Subjective Start: 07/22/24 15:18 Freq: Status: Active Protocol: Document 08/13/24 17:06 SILVER BUFFER (Rec: 08/13/24 18:04 SILVER BUFFER Laptop) OP-PT Subjective Patient Comments Patient Comments Pt reports pain increased after last session to a 3/10 and has stayed at a 3/10 today. PT-OP-D Balance Start: 07/22/24 15:18 Freq: Status: Active Protocol: Document 07/22/24 15:19 SILVER BUFFER (Rec: 07/22/24 16:55 SILVER BUFFER Laptop) Balance Tests Single Limb Standing Single Limb- Right >1 min without instability Single Limb- Left 10s significant difficulty and lateral upper body sway/ reactions PT-OP-F Manual Assessment Start: 07/22/24 15:18 Freq: Status: Active Protocol: Document 07/22/24 15:19 SILVER BUFFER (Rec: 07/22/24 16:55 SILVER BUFFER Laptop) Manual Assessments Joint Mobility Assessment Joint Mobility Decreased PA of L talus at talocrural joint Assessment PT-OP-G Mobility & Gait Start: 07/22/24 15:18 Freq: Status: Active Protocol: Document 07/22/24 15:19 SILVER BUFFER (Rec: 07/22/24 16:55 SILVER BUFFER Laptop) OP Gait Assessment Comments Gait Comments Amb without AD, mild B knee varus, mild decreased pre swing on L PT-OP-K Range of Motion Start: 07/22/24 15:18 Freq: Status: Active Protocol: Document 07/22/24 15:19 SILVER BUFFER (Rec: 07/22/24 16:55 SILVER BUFFER Laptop) Hip Goniometric Range of Motion Hip ROM Limitations Hip ROM Limitations Soft Tissue Tightness Comments Baldev test: L 2.5 , R 2.5 Heel to butt: L 5.5, R 7.5 Ankle and Foot Goniometric Range of Motion Ankle and Foot L Testing Position Sitting Dorsiflexion with 0 Knee Extended Plantarflexion 34 Inversion 23 Eversion 15 R Testing Position Sitting Dorsiflexion with 5 Knee Extended Plantarflexion 47 Inversion 24 Eversion 17 PT-OP-M Strength Start: 07/22/24 15:18 Freq: Status: Active Protocol: Document 07/22/24 15:19 SILVER BUFFER (Rec: 07/22/24 16:55 SILVER BUFFER Laptop) Hip Strength Hip Manual Muscle Testing L Flexion (L2) 5 Normal Extension (S1) 4+ Good+ Abduction 4 Good R Flexion (L2) 4+ Good+ Extension (S1) 5 Normal Abduction 4 Good Knee Strength Knee Manual Muscle Testing L Flexion (S2) 4- Good- Extension (L3) 4+ Good+ R Flexion (S2) 4 Good Extension (L3) 5 Normal Ankle/Foot Strength Ankle and Foot Manual Muscle Testing L Dorsiflexion (L4) 4+ Good+ Inversion 4+ Good+ Eversion (S1) 4 Good R Dorsiflexion (L4) 5 Normal Inversion 5 Normal Eversion (S1) 5 Normal PT-OP-Q Treatments Start: 07/22/24 15:18 Freq: Status: Active Protocol: Document 08/13/24 17:06 SILVER BUFFER (Rec: 08/13/24 18:04 SILVER BUFFER Laptop) Manual Therapy Treatment Soft Tissue Mobilization Ankle Comments L achilles w/standing DF and prone and scraping Joint Mobilizations Calcaneus Comments gapping c/r and thrust w/pt holding self into DF Talus Comments distraction c/r Taping Edema Body Location L ant and lateral ankle Treatment Focus edema method Type of Tape KT Comments 1st strip: 1 anchor piece above talocrural joint lint with 4 strips without tension wrapping ant foot over areas of increased edema 2nd strip: cut same as 1st and anchored at medial ankle and crossing over 1st strip over areas of edema PT-OP-T Assessment and Plan Start: 07/22/24 15:18 Freq: Status: Active Protocol: Document 08/13/24 17:06 SILVER BUFFER (Rec: 08/13/24 18:04 SILVER BUFFER Laptop) Physical Therapy Assessment Impairments Impairments Balance,Functional Activities,Functional Mobility,Gait, Pain,ROM,Soft Tissue Mobility,Strength Goals ROM Impairment ROM Impairment L ankle ROM Short Term Goal (STG Pt will improve L active DF from 0 degrees to 5 degrees ) to improve function STG Duration 6 weeks Business Practices Officer Goal (LTG) Pt will improve B active DF to 10 degrees for improved function LTG Duration 12 weeks 2 Impairment Strength Impairment BLE strength Short Term Goal (STG Pt will improve B hip abd strength, B hamstring ) strength, and L foot eversion to at least 4+/5 STG Duration 6 weeks Detention Goal (LTG) Pt will amb 0.5 miles on 7% grade at 1.5 speed on treadmill without rest break without pain in L ankle to return to hiking. LTG Duration 12 weeks 1 Impairment Balance Impairment B SLS Short Term Goal (STG Pt will demonstrate improved balance and proprioception ) with L SLS on even floor for 60s to improve function and safety STG Duration 6 weeks Detention Goal (LTG) Pt will demonstrate improved balance and proprioception with L SLS on foam for 60s without upper body sway for improved function. LTG Duration 12 weeks Assessment Summary Assessment Pt with very restricted L Achilles, improved knee to wall after scraping from 02/12 to 1. Physical Therapy Plan Frequency and Duration Frequency of 2x/Week Treatment Duration of 12 treatment (weeks) Plan of Care Start 07/22/24 Date Plan of Care End 10/14/24 Date Therapeutic Interventions Therapeutic Balance Training,Gait Training,Home Exercise Program, Interventions Joint Mobilizations,Manual Therapy,Neuromuscular Re- education,Soft Tissue Mobilization,Taping,Therapeutic Activities,Therapeutic Exercises Modalities Cold Pack/Ice Massage,Hot Packs,Ultrasound Next Visit Focus/Plan Next Note Type Treatment Note Next Visit Plan review intrinsic foot exercises, condense HEP, add B hip strengthening HEP
--- NOTE | 2024-08-25 18:52 | PT.OTN ---
Current Diagnoses Other sprain of left foot, subsequent encounter (08/25/24) Physical Therapy Treatment Note PT-OP-A Visit Information Start: 07/22/24 15:18 Freq: Status: Active Protocol: Document 08/25/24 15:22 PRICE ECONOMIST (Rec: 08/25/24 16:14 PRICE ECONOMIST Laptop) Out-Patient Physical Therapy Visit Information Visit Information Visit Type Progress Note Visit Start Time 15:21 Visit Stop Time 16:10 Visit Number [address]IST[address] OFFICER Visits 0 Evaluation Information Evaluation Date 07/22/24 Precautions Precautions None PT-OP-B Current Condition Start: 07/22/24 15:18 Freq: Status: Active Protocol: Document 07/22/24 15:19 PRICE ECONOMIST (Rec: 07/22/24 16:55 PRICE ECONOMIST Laptop) Current Condition History of Current Condition Onset Date First sprain 2015, second sprain last year, third sprain last month Current Complaints L ankle pain and weakness History of Current Harriet amb into session without AD but wearing B ankle Condition boots, she reports wears boots for increased ankle support. Sprained my left foot 3 times now, last one was last month and I didn't do any exercises afterward. Has been doing day to day activities but unable to perform hobbies: slack lining, rock climbing, hiking, backpacking. Has been going to the gym and going up stairs which causes sharp pain at front of L foot while lifting toes up. Currently has sharp shooting pain in low back, reports back injury while in college with fall on stairs which took a while to recover from but never went to the doctor for it and is unsure if back pain and ankle injury are related. Treatment Goals Patient/Caregiver To strengthen my ankle and get some tips for how to Goals prevent future ankle sprains and how to decrease back pain. PT-OP-C Subjective Start: 07/22/24 15:18 Freq: Status: Active Protocol: Document 08/25/24 15:22 PRICE ECONOMIST (Rec: 08/25/24 16:14 PRICE ECONOMIST Laptop) OP-PT Subjective Patient Comments Patient Comments Pt reports taping last session did not reduce edema as much as first time taping and left a small abrasion when taking it off. Pt also reports still feeling stiff to ant ankle while walking. PT-OP-D Balance Start: 07/22/24 15:18 Freq: Status: Active Protocol: Document 08/25/24 15:22 PRICE ECONOMIST (Rec: 08/25/24 16:14 PRICE ECONOMIST Laptop) Balance Tests Single Limb Standing Single Limb- Right >1 min without instability Single Limb- Left 16s, 14s, 7s moderate difficulty and mild lateral upper body sway/reactions PT-OP-F Manual Assessment Start: 07/22/24 15:18 Freq: Status: Active Protocol: Document 07/22/24 15:19 PRICE ECONOMIST (Rec: 07/22/24 16:55 PRICE ECONOMIST Laptop) Manual Assessments Joint Mobility Assessment Joint Mobility Decreased PA of L talus at talocrural joint Assessment PT-OP-G Mobility & Gait Start: 07/22/24 15:18 Freq: Status: Active Protocol: Document 07/22/24 15:19 PRICE ECONOMIST (Rec: 07/22/24 16:55 PRICE ECONOMIST Laptop) OP Gait Assessment Comments Gait Comments Amb without AD, mild B knee varus, mild decreased pre swing on L PT-OP-K Range of Motion Start: 07/22/24 15:18 Freq: Status: Active Protocol: Document 08/25/24 15:22 PRICE ECONOMIST (Rec: 08/25/24 16:14 PRICE ECONOMIST Laptop) Ankle and Foot Goniometric Range of Motion Ankle and Foot L Testing Position Sitting Dorsiflexion with 2 Knee Extended Plantarflexion 44 Inversion 27 Eversion 15 PT-OP-M Strength Start: 07/22/24 15:18 Freq: Status: Active Protocol: Document 08/25/24 15:22 PRICE ECONOMIST (Rec: 08/25/24 16:14 PRICE ECONOMIST Laptop) Hip Strength Hip Manual Muscle Testing L Flexion (L2) 4+ Good+ Extension (S1) 4+ Good+ Abduction 4+ Good+ R Flexion (L2) 4+ Good+ Extension (S1) 5 Normal Abduction 4+ Good+ Knee Strength Knee Manual Muscle Testing L Flexion (S2) 4+ Good+ Extension (L3) 5 Normal R Flexion (S2) 5 Normal Extension (L3) 5 Normal Ankle/Foot Strength Ankle and Foot Manual Muscle Testing L Dorsiflexion (L4) 4+ Good+ Inversion 4+ Good+ Eversion (S1) 4+ Good+ R Dorsiflexion (L4) 5 Normal Inversion 5 Normal Eversion (S1) 5 Normal PT-OP-Q Treatments Start: 07/22/24 15:18 Freq: Status: Active Protocol: Document 08/25/24 15:22 PRICE ECONOMIST (Rec: 08/25/24 18:51 PRICE ECONOMIST Laptop) Therapeutic Exercises Sitting Exercises Intrinsic foot Sitting Exercise HEP review Name Side bilateral Reps/Minutes x10 each 4-way ankle Sitting Exercise upgraded TB from L2 to L3 for HEP Name Standing Exercises 3 way hip Side bilateral Reps/Minutes x10 each Comments Added to HEP with HO Neuro Re-Education Treatment Balance Activities SLS Details LLE Surface even Reps/Duration 16s, 14s, 7s Comments moderate trunk sway PT-OP-T Assessment and Plan Start: 07/22/24 15:18 Freq: Status: Active Protocol: Document 08/25/24 15:22 PRICE ECONOMIST (Rec: 08/25/24 16:14 PRICE ECONOMIST Laptop) Physical Therapy Assessment Goals ROM Impairment ROM Impairment L ankle ROM Short Term Goal (STG Pt will improve L active DF from 0 degrees to 5 degrees ) to improve function 08/25: Progressing, 2 degrees STG Duration 6 weeks Application Project Leader Goal (LTG) Pt will improve B active DF to 10 degrees for improved function LTG Duration 12 weeks 2 Impairment Strength Impairment BLE strength Short Term Goal (STG Pt will improve B hip abd strength, B hamstring ) strength, and L foot eversion to at least 4+/5 08/25: MET STG Duration 6 weeks MET Halfway Goal (LTG) Pt will amb 0.5 miles on 7% grade at 1.5 speed on treadmill without rest break without pain in L ankle to return to hiking. LTG Duration 12 weeks 1 Impairment Balance Impairment B SLS Short Term Goal (STG Pt will demonstrate improved balance and proprioception ) with L SLS on even floor for 60s to improve function and safety 08/25: Progressing 16s, 14s, 7s STG Duration 6 weeks Application Project Leader Goal (LTG) Pt will demonstrate improved balance and proprioception with L SLS on foam for 60s without upper body sway for improved function. LTG Duration 12 weeks Assessment Summary Assessment Pt is progressing towards all goals, improving L ankle active DF from 0 degrees to 2 degrees, improvement to 4 + on B hip strength, and improved L SLS from 10s on eval to average of 12s over 3 trials. Pt met 1/3 STGs, will continue to benefit from B hip strengthening, standing balance, and STM and joint mobs to L ankle to progress ankle ROM. Pt given HEP HO for B hip strengthening and SLS and upgraded 4way ankle TB from L2 to L3. Physical Therapy Plan Frequency and Duration Frequency of 2x/Week Treatment Duration of 12 treatment (weeks) Plan of Care Start 07/22/24 Date Plan of Care End 10/14/24 Date Therapeutic Interventions Therapeutic Balance Training,Gait Training,Home Exercise Program, Interventions Joint Mobilizations,Manual Therapy,Neuromuscular Re- education,Soft Tissue Mobilization,Taping,Therapeutic Activities,Therapeutic Exercises Modalities Cold Pack/Ice Massage,Hot Packs,Ultrasound Next Visit Focus/Plan Next Note Type Treatment Note Next Visit Plan L ankle distraction mob, STM to L achilles
--- NOTE | 2024-08-27 16:12 | PT.OTN ---
Current Diagnoses Other sprain of left foot, subsequent encounter (08/27/24) Physical Therapy Treatment Note PT-OP-A Visit Information Start: 07/22/24 15:18 Freq: Status: Active Protocol: Document 08/27/24 15:16 AB (Rec: 08/27/24 16:11 AB [id number]) Out-Patient Physical Therapy Visit Information Visit Information Visit Type Treatment Note Visit Note Access Code: [email or web address] Visit Start Time 15:25 Visit Stop Time 16:05 Visit Number 10 Number of PLANNING FEEDER Visits 1 PT-OP-B Current Condition Start: 07/22/24 15:18 Freq: Status: Active Protocol: Document 07/22/24 15:19 TERRAZZO TILE SETTER (Rec: 07/22/24 16:55 TERRAZZO TILE SETTER Laptop) Current Condition History of Current Condition Onset Date First sprain 2015, second sprain last year, third sprain last month Current Complaints L ankle pain and weakness History of Current Harriet amb into session without AD but wearing B ankle Condition boots, she reports wears boots for increased ankle support. Sprained my left foot 3 times now, last one was last month and I didn't do any exercises afterward. Has been doing day to day activities but unable to perform hobbies: slack lining, rock climbing, hiking, backpacking. Has been going to the gym and going up stairs which causes sharp pain at front of L foot while lifting toes up. Currently has sharp shooting pain in low back, reports back injury while in college with fall on stairs which took a while to recover from but never went to the doctor for it and is unsure if back pain and ankle injury are related. Treatment Goals Patient/Caregiver To strengthen my ankle and get some tips for how to Goals prevent future ankle sprains and how to decrease back pain. PT-OP-C Subjective Start: 07/22/24 15:18 Freq: Status: Active Protocol: Document 08/27/24 15:16 AB (Rec: 08/27/24 16:11 AB [id number]) OP-PT Subjective Patient Comments Patient Comments Patient reports blocking sensation persists, but does feel she has more motion. PT-OP-D Balance Start: 07/22/24 15:18 Freq: Status: Active Protocol: Document 08/25/24 15:22 TERRAZZO TILE SETTER (Rec: 08/25/24 16:14 TERRAZZO TILE SETTER Laptop) Balance Tests Single Limb Standing Single Limb- Right >1 min without instability Single Limb- Left 16s, 14s, 7s moderate difficulty and mild lateral upper body sway/reactions PT-OP-F Manual Assessment Start: 07/22/24 15:18 Freq: Status: Active Protocol: Document 07/22/24 15:19 TERRAZZO TILE SETTER (Rec: 07/22/24 16:55 TERRAZZO TILE SETTER Laptop) Manual Assessments Joint Mobility Assessment Joint Mobility Decreased PA of L talus at talocrural joint Assessment PT-OP-G Mobility & Gait Start: 07/22/24 15:18 Freq: Status: Active Protocol: Document 07/22/24 15:19 TERRAZZO TILE SETTER (Rec: 07/22/24 16:55 TERRAZZO TILE SETTER Laptop) OP Gait Assessment Comments Gait Comments Amb without AD, mild B knee varus, mild decreased pre swing on L PT-OP-K Range of Motion Start: 07/22/24 15:18 Freq: Status: Active Protocol: Document 08/25/24 15:22 TERRAZZO TILE SETTER (Rec: 08/25/24 16:14 TERRAZZO TILE SETTER Laptop) Ankle and Foot Goniometric Range of Motion Ankle and Foot L Testing Position Sitting Dorsiflexion with 2 Knee Extended Plantarflexion 44 Inversion 27 Eversion 15 PT-OP-M Strength Start: 07/22/24 15:18 Freq: Status: Active Protocol: Document 08/25/24 15:22 TERRAZZO TILE SETTER (Rec: 08/25/24 16:14 TERRAZZO TILE SETTER Laptop) Hip Strength Hip Manual Muscle Testing L Flexion (L2) 4+ Good+ Extension (S1) 4+ Good+ Abduction 4+ Good+ R Flexion (L2) 4+ Good+ Extension (S1) 5 Normal Abduction 4+ Good+ Knee Strength Knee Manual Muscle Testing L Flexion (S2) 4+ Good+ Extension (L3) 5 Normal R Flexion (S2) 5 Normal Extension (L3) 5 Normal Ankle/Foot Strength Ankle and Foot Manual Muscle Testing L Dorsiflexion (L4) 4+ Good+ Inversion 4+ Good+ Eversion (S1) 4+ Good+ R Dorsiflexion (L4) 5 Normal Inversion 5 Normal Eversion (S1) 5 Normal PT-OP-Q Treatments Start: 07/22/24 15:18 Freq: Status: Active Protocol: Document 08/27/24 15:16 AB (Rec: 08/27/24 16:11 AB [id number]) Therapeutic Exercises Sitting Exercises AROM DF Sitting Exercise HEP Name Reps/Minutes X 15 X 2 X 2 Comments verbal and visual cues Standing Exercises Stretch Standing Exercise gastroc and soleus On THERESA Name Side bilateral Reps/Minutes 60s x 2 each LE Comments post manual Other Exercises Self TC mob Other Exercise Name L ankle AP HEP Resistance Level 5 band Reps/Minutes X 10 then 2X 10 Comments Verbal/ and tactile cues Manual Therapy Treatment Consent Patient gave verbal Yes consent for manual treatment Soft Tissue Mobilization Ankle Body Location anterior ankle and distal ant LE and calf muscles L LE Mobilization Type Cross-Friction,Instrument Assisted,Rolling Intensity/Depth Moderate Body Position Prone Comments and sidelying toe movement and PF DF with cupping Joint Mobilizations L ankle Joint distraction caudally, distal tib fib AP and PA Direction IV for distraction III to tib fib Grade III Body Position Hooklying Reps/Duration X 5 X 5 for tib fib 2 min for distraction Talus Joint MWM TC mob L Direction AP Grade IV Body Position Standing Reps/Duration X 15 PT-OP-T Assessment and Plan Start: 07/22/24 15:18 Freq: Status: Active Protocol: Document 08/27/24 15:16 AB (Rec: 08/27/24 16:11 AB [id number]) Physical Therapy Assessment Goals ROM Impairment ROM Impairment L ankle ROM Short Term Goal (STG Pt will improve L active DF from 0 degrees to 5 degrees ) to improve function 08/25: Progressing, 2 degrees STG Duration 6 weeks Telephone Station Installer Goal (LTG) Pt will improve B active DF to 10 degrees for improved function LTG Duration 12 weeks 2 Impairment Strength Impairment BLE strength Short Term Goal (STG Pt will improve B hip abd strength, B hamstring ) strength, and L foot eversion to at least 4+/5 08/25: MET STG Duration 6 weeks MET Assisted Goal (LTG) Pt will amb 0.5 miles on 7% grade at 1.5 speed on treadmill without rest break without pain in L ankle to return to hiking. LTG Duration 12 weeks 1 Impairment Balance Impairment B SLS Short Term Goal (STG Pt will demonstrate improved balance and proprioception ) with L SLS on even floor for 60s to improve function and safety 08/25: Progressing 16s, 14s, 7s STG Duration 6 weeks Assisted Goal (LTG) Pt will demonstrate improved balance and proprioception with L SLS on foam for 60s without upper body sway for improved function. LTG Duration 12 weeks Assessment Summary Assessment Patient reports decreased discomfort with AROM DF post self TC mob, discomfort with calf stretches persists, but feels in in the L calf post self TC mob. Physical Therapy Plan Frequency and Duration Frequency of 2x/Week Treatment Duration of 12 treatment (weeks) Plan of Care Start 07/22/24 Date Plan of Care End 10/14/24 Date Next Visit Focus/Plan Next Note Type Treatment Note Next Visit Plan L ankle distraction mob, STM to L achilles
--- NOTE | 2024-09-01 15:58 | PT.OTN ---
Current Diagnoses Other sprain of left foot, subsequent encounter (09/01/24) Physical Therapy Treatment Note PT-OP-A Visit Information Start: 07/22/24 15:18 Freq: Status: Active Protocol: Document 09/01/24 15:18 MB (Rec: 09/01/24 15:56 MB Desktop) Out-Patient Physical Therapy Visit Information Visit Information Visit Type Treatment Note Visit Start Time 15:18 Visit Stop Time 15:58 Visit Number 11 Number of MAILING MACHINE ASSISTANT Visits 0 Evaluation Information Evaluation Date 07/22/24 PT-OP-B Current Condition Start: 07/22/24 15:18 Freq: Status: Active Protocol: Document 07/22/24 15:19 ROLL TUBE SETTER (Rec: 07/22/24 16:55 ROLL TUBE SETTER Laptop) Current Condition History of Current Condition Onset Date First sprain 2015, second sprain last year, third sprain last month Current Complaints L ankle pain and weakness History of Current Harriet amb into session without AD but wearing B ankle Condition boots, she reports wears boots for increased ankle support. Sprained my left foot 3 times now, last one was last month and I didn't do any exercises afterward. Has been doing day to day activities but unable to perform hobbies: slack lining, rock climbing, hiking, backpacking. Has been going to the gym and going up stairs which causes sharp pain at front of L foot while lifting toes up. Currently has sharp shooting pain in low back, reports back injury while in college with fall on stairs which took a while to recover from but never went to the doctor for it and is unsure if back pain and ankle injury are related. Treatment Goals Patient/Caregiver To strengthen my ankle and get some tips for how to Goals prevent future ankle sprains and how to decrease back pain. PT-OP-C Subjective Start: 07/22/24 15:18 Freq: Status: Active Protocol: Document 09/01/24 15:18 MB (Rec: 09/01/24 15:56 MB Desktop) OP-PT Subjective Patient Comments Patient Comments Pt states that this is the first morning she woke up and her left ankle wasn't as stiff. PT-OP-D Balance Start: 07/22/24 15:18 Freq: Status: Active Protocol: Document 08/25/24 15:22 ROLL TUBE SETTER (Rec: 08/25/24 16:14 ROLL TUBE SETTER Laptop) Balance Tests Single Limb Standing Single Limb- Right >1 min without instability Single Limb- Left 16s, 14s, 7s moderate difficulty and mild lateral upper body sway/reactions PT-OP-F Manual Assessment Start: 07/22/24 15:18 Freq: Status: Active Protocol: Document 07/22/24 15:19 ROLL TUBE SETTER (Rec: 07/22/24 16:55 ROLL TUBE SETTER Laptop) Manual Assessments Joint Mobility Assessment Joint Mobility Decreased PA of L talus at talocrural joint Assessment PT-OP-G Mobility & Gait Start: 07/22/24 15:18 Freq: Status: Active Protocol: Document 07/22/24 15:19 ROLL TUBE SETTER (Rec: 07/22/24 16:55 ROLL TUBE SETTER Laptop) OP Gait Assessment Comments Gait Comments Amb without AD, mild B knee varus, mild decreased pre swing on L PT-OP-K Range of Motion Start: 07/22/24 15:18 Freq: Status: Active Protocol: Document 08/25/24 15:22 ROLL TUBE SETTER (Rec: 08/25/24 16:14 ROLL TUBE SETTER Laptop) Ankle and Foot Goniometric Range of Motion Ankle and Foot L Testing Position Sitting Dorsiflexion with 2 Knee Extended Plantarflexion 44 Inversion 27 Eversion 15 PT-OP-M Strength Start: 07/22/24 15:18 Freq: Status: Active Protocol: Document 08/25/24 15:22 ROLL TUBE SETTER (Rec: 08/25/24 16:14 ROLL TUBE SETTER Laptop) Hip Strength Hip Manual Muscle Testing L Flexion (L2) 4+ Good+ Extension (S1) 4+ Good+ Abduction 4+ Good+ R Flexion (L2) 4+ Good+ Extension (S1) 5 Normal Abduction 4+ Good+ Knee Strength Knee Manual Muscle Testing L Flexion (S2) 4+ Good+ Extension (L3) 5 Normal R Flexion (S2) 5 Normal Extension (L3) 5 Normal Ankle/Foot Strength Ankle and Foot Manual Muscle Testing L Dorsiflexion (L4) 4+ Good+ Inversion 4+ Good+ Eversion (S1) 4+ Good+ R Dorsiflexion (L4) 5 Normal Inversion 5 Normal Eversion (S1) 5 Normal PT-OP-Q Treatments Start: 07/22/24 15:18 Freq: Status: Active Protocol: Document 09/01/24 15:18 MB (Rec: 09/01/24 15:56 MB Desktop) Manual Therapy Treatment Consent Patient gave verbal Yes consent for manual treatment Other Other Manual Pt supine with head and legs supported: STM and Treatments positional release B glutes, hamstrings, vastus lateralis, plantar flexors and plantar fascia and B plantar flexors are most tense PT-OP-T Assessment and Plan Start: 07/22/24 15:18 Freq: Status: Active Protocol: Document 09/01/24 15:18 MB (Rec: 09/01/24 15:56 MB Desktop) Physical Therapy Assessment Goals ROM Impairment ROM Impairment L ankle ROM Short Term Goal (STG Pt will improve L active DF from 0 degrees to 5 degrees ) to improve function 08/25: Progressing, 2 degrees STG Duration 6 weeks Production Or Plant Engineer Goal (LTG) Pt will improve B active DF to 10 degrees for improved function LTG Duration 12 weeks 2 Impairment Strength Impairment BLE strength Short Term Goal (STG Pt will improve B hip abd strength, B hamstring ) strength, and L foot eversion to at least 4+/5 08/25: MET STG Duration 6 weeks MET Production Or Plant Engineer Goal (LTG) Pt will amb 0.5 miles on 7% grade at 1.5 speed on treadmill without rest break without pain in L ankle to return to hiking. LTG Duration 12 weeks 1 Impairment Balance Impairment B SLS Short Term Goal (STG Pt will demonstrate improved balance and proprioception ) with L SLS on even floor for 60s to improve function and safety 08/25: Progressing 16s, 14s, 7s STG Duration 6 weeks Snf Goal (LTG) Pt will demonstrate improved balance and proprioception with L SLS on foam for 60s without upper body sway for improved function. LTG Duration 12 weeks Assessment Summary Assessment Pt tolerates manual work today. Con't per primary PT plan. Physical Therapy Plan Frequency and Duration Frequency of 2x/Week Treatment Duration of 12 treatment (weeks) Plan of Care Start 07/22/24 Date Plan of Care End 10/14/24 Date Next Visit Focus/Plan Next Note Type Treatment Note Next Visit Plan Plan: L ankle distraction mob, STM to L achilles
--- NOTE | 2024-09-03 16:13 | PT.OTN ---
Current Diagnoses Other sprain of left foot, subsequent encounter (09/03/24) Physical Therapy Treatment Note PT-OP-A Visit Information Start: 07/22/24 15:18 Freq: Status: Active Protocol: Document 09/03/24 15:19 AB (Rec: 09/03/24 16:11 AB [id number]) Out-Patient Physical Therapy Visit Information Visit Information Visit Type Treatment Note Visit Note Access Code: [email or web address] Visit Start Time 15:20 Visit Stop Time 16:08 Visit Number 12 Number of PROGRAM INSTRUCTOR Visits 1 PT-OP-B Current Condition Start: 07/22/24 15:18 Freq: Status: Active Protocol: Document 07/22/24 15:19 HEEL COVER SPLITTER (Rec: 07/22/24 16:55 HEEL COVER SPLITTER Laptop) Current Condition History of Current Condition Onset Date First sprain 2015, second sprain last year, third sprain last month Current Complaints L ankle pain and weakness History of Current Harriet amb into session without AD but wearing B ankle Condition boots, she reports wears boots for increased ankle support. Sprained my left foot 3 times now, last one was last month and I didn't do any exercises afterward. Has been doing day to day activities but unable to perform hobbies: slack lining, rock climbing, hiking, backpacking. Has been going to the gym and going up stairs which causes sharp pain at front of L foot while lifting toes up. Currently has sharp shooting pain in low back, reports back injury while in college with fall on stairs which took a while to recover from but never went to the doctor for it and is unsure if back pain and ankle injury are related. Treatment Goals Patient/Caregiver To strengthen my ankle and get some tips for how to Goals prevent future ankle sprains and how to decrease back pain. PT-OP-C Subjective Start: 07/22/24 15:18 Freq: Status: Active Protocol: Document 09/03/24 15:19 AB (Rec: 09/03/24 16:11 AB [id number]) OP-PT Subjective Patient Comments Patient Comments Patient reports she is getting better, and bending the ankle ( DF) is getting better, but it is still blocked. PT-OP-D Balance Start: 07/22/24 15:18 Freq: Status: Active Protocol: Document 08/25/24 15:22 HEEL COVER SPLITTER (Rec: 08/25/24 16:14 HEEL COVER SPLITTER Laptop) Balance Tests Single Limb Standing Single Limb- Right >1 min without instability Single Limb- Left 16s, 14s, 7s moderate difficulty and mild lateral upper body sway/reactions PT-OP-F Manual Assessment Start: 07/22/24 15:18 Freq: Status: Active Protocol: Document 07/22/24 15:19 HEEL COVER SPLITTER (Rec: 07/22/24 16:55 HEEL COVER SPLITTER Laptop) Manual Assessments Joint Mobility Assessment Joint Mobility Decreased PA of L talus at talocrural joint Assessment PT-OP-G Mobility & Gait Start: 07/22/24 15:18 Freq: Status: Active Protocol: Document 07/22/24 15:19 HEEL COVER SPLITTER (Rec: 07/22/24 16:55 HEEL COVER SPLITTER Laptop) OP Gait Assessment Comments Gait Comments Amb without AD, mild B knee varus, mild decreased pre swing on L PT-OP-K Range of Motion Start: 07/22/24 15:18 Freq: Status: Active Protocol: Document 08/25/24 15:22 HEEL COVER SPLITTER (Rec: 08/25/24 16:14 HEEL COVER SPLITTER Laptop) Ankle and Foot Goniometric Range of Motion Ankle and Foot L Testing Position Sitting Dorsiflexion with 2 Knee Extended Plantarflexion 44 Inversion 27 Eversion 15 PT-OP-M Strength Start: 07/22/24 15:18 Freq: Status: Active Protocol: Document 08/25/24 15:22 HEEL COVER SPLITTER (Rec: 08/25/24 16:14 HEEL COVER SPLITTER Laptop) Hip Strength Hip Manual Muscle Testing L Flexion (L2) 4+ Good+ Extension (S1) 4+ Good+ Abduction 4+ Good+ R Flexion (L2) 4+ Good+ Extension (S1) 5 Normal Abduction 4+ Good+ Knee Strength Knee Manual Muscle Testing L Flexion (S2) 4+ Good+ Extension (L3) 5 Normal R Flexion (S2) 5 Normal Extension (L3) 5 Normal Ankle/Foot Strength Ankle and Foot Manual Muscle Testing L Dorsiflexion (L4) 4+ Good+ Inversion 4+ Good+ Eversion (S1) 4+ Good+ R Dorsiflexion (L4) 5 Normal Inversion 5 Normal Eversion (S1) 5 Normal PT-OP-Q Treatments Start: 07/22/24 15:18 Freq: Status: Active Protocol: Document 09/03/24 15:19 AB (Rec: 09/03/24 16:11 AB [id number]) Therapeutic Exercises Sitting Exercises AROM DF Sitting Exercise HEP Name Reps/Minutes X 15 without band and X 15 with level one band Comments verbal and visual cues Standing Exercises squat Standing Exercise HEP squat to chair touch Name Side bilateral Reps/Minutes X 10 X 2 with level 4 band above knees Comments for body over ankle mvt end of session, monitored for pain Stretch Standing Exercise gastroc and soleus On THERESA Name Side bilateral Reps/Minutes 60s x 2 each LE and X 5 step thru R X 10 L Comments post manual Manual Therapy Treatment Consent Patient gave verbal Yes consent for manual treatment Soft Tissue Mobilization Ankle Body Location anterior ankle and distal ant LE and calf muscles L LE Mobilization Type Cross-Friction,Instrument Assisted,Rolling Intensity/Depth Moderate Body Position Prone Comments and sidelying toe movement and PF DF with cupping Joint Mobilizations L ankle Joint distraction caudally, distal tib fib AP and PA Direction IV for distraction III to tib fib Grade III Body Position Hooklying Reps/Duration X 5 X 5 for tib fib 2 min for distraction Talus Joint MWM TC mob L Direction AP Grade IV Body Position Standing Reps/Duration X 15 PT-OP-T Assessment and Plan Start: 07/22/24 15:18 Freq: Status: Active Protocol: Document 09/03/24 15:19 AB (Rec: 09/03/24 16:11 AB [id number]) Physical Therapy Assessment Goals ROM Impairment ROM Impairment L ankle ROM Short Term Goal (STG Pt will improve L active DF from 0 degrees to 5 degrees ) to improve function 08/25: Progressing, 2 degrees STG Duration 6 weeks Insulation Nozzleman Goal (LTG) Pt will improve B active DF to 10 degrees for improved function LTG Duration 12 weeks 2 Impairment Strength Impairment BLE strength Short Term Goal (STG Pt will improve B hip abd strength, B hamstring ) strength, and L foot eversion to at least 4+/5 08/25: MET STG Duration 6 weeks MET Insulation Nozzleman Goal (LTG) Pt will amb 0.5 miles on 7% grade at 1.5 speed on treadmill without rest break without pain in L ankle to return to hiking. LTG Duration 12 weeks 1 Impairment Balance Impairment B SLS Short Term Goal (STG Pt will demonstrate improved balance and proprioception ) with L SLS on even floor for 60s to improve function and safety 08/25: Progressing 16s, 14s, 7s STG Duration 6 weeks Prison Goal (LTG) Pt will demonstrate improved balance and proprioception with L SLS on foam for 60s without upper body sway for improved function. LTG Duration 12 weeks Assessment Summary Assessment Patient reports feeling great end of session. Good form with squat, increased tolerance to calf stretches. Physical Therapy Plan Frequency and Duration Frequency of 2x/Week Treatment Duration of 12 treatment (weeks) Plan of Care Start 07/22/24 Date Plan of Care End 10/14/24 Date Next Visit Focus/Plan Next Note Type Treatment Note Next Visit Plan Plan: L ankle distraction mob, STM to L achilles
--- NOTE | 2024-09-08 16:10 | PT.OTN ---
Addendum entered and electronically signed by Eli Cooper 09/29/24 16:54: measurement is knee from wall not knee to wall and great toe is positioned at wall Original Note: Current Diagnoses Other sprain of left foot, subsequent encounter (09/08/24) Physical Therapy Treatment Note PT-OP-A Visit Information Start: 07/22/24 15:18 Freq: Status: Active Protocol: Document 09/08/24 15:03 AB (Rec: 09/08/24 16:09 AB [id number]) Out-Patient Physical Therapy Visit Information Visit Information Visit Type Treatment Note Visit Note Access Code: [email or web address] Visit Start Time 15:19 Visit Stop Time 16:04 Visit Number PN 09/24/2024 13 Number of PLUMBER SUPERVISOR Visits 2 PT-OP-B Current Condition Start: 07/22/24 15:18 Freq: Status: Active Protocol: Document 07/22/24 15:19 CHIEF CLERK SHELTER (Rec: 07/22/24 16:55 CHIEF CLERK SHELTER Laptop) Current Condition History of Current Condition Onset Date First sprain 2015, second sprain last year, third sprain last month Current Complaints L ankle pain and weakness History of Current Harriet amb into session without AD but wearing B ankle Condition boots, she reports wears boots for increased ankle support. Sprained my left foot 3 times now, last one was last month and I didn't do any exercises afterward. Has been doing day to day activities but unable to perform hobbies: slack lining, rock climbing, hiking, backpacking. Has been going to the gym and going up stairs which causes sharp pain at front of L foot while lifting toes up. Currently has sharp shooting pain in low back, reports back injury while in college with fall on stairs which took a while to recover from but never went to the doctor for it and is unsure if back pain and ankle injury are related. Treatment Goals Patient/Caregiver To strengthen my ankle and get some tips for how to Goals prevent future ankle sprains and how to decrease back pain. PT-OP-C Subjective Start: 07/22/24 15:18 Freq: Status: Active Protocol: Document 09/08/24 15:03 AB (Rec: 09/08/24 16:09 AB [id number]) OP-PT Subjective Patient Comments Patient Comments Patient reports the ankle still feels blocked, but the block feels less noticeable. PROM DF .75 cm from wall with knee to wall L LE start of session. PT-OP-D Balance Start: 07/22/24 15:18 Freq: Status: Active Protocol: Document 08/25/24 15:22 CHIEF CLERK SHELTER (Rec: 08/25/24 16:14 CHIEF CLERK SHELTER Laptop) Balance Tests Single Limb Standing Single Limb- Right >1 min without instability Single Limb- Left 16s, 14s, 7s moderate difficulty and mild lateral upper body sway/reactions PT-OP-F Manual Assessment Start: 07/22/24 15:18 Freq: Status: Active Protocol: Document 07/22/24 15:19 CHIEF CLERK SHELTER (Rec: 07/22/24 16:55 CHIEF CLERK SHELTER Laptop) Manual Assessments Joint Mobility Assessment Joint Mobility Decreased PA of L talus at talocrural joint Assessment PT-OP-G Mobility & Gait Start: 07/22/24 15:18 Freq: Status: Active Protocol: Document 07/22/24 15:19 CHIEF CLERK SHELTER (Rec: 07/22/24 16:55 CHIEF CLERK SHELTER Laptop) OP Gait Assessment Comments Gait Comments Amb without AD, mild B knee varus, mild decreased pre swing on L PT-OP-K Range of Motion Start: 07/22/24 15:18 Freq: Status: Active Protocol: Document 08/25/24 15:22 CHIEF CLERK SHELTER (Rec: 08/25/24 16:14 CHIEF CLERK SHELTER Laptop) Ankle and Foot Goniometric Range of Motion Ankle and Foot L Testing Position Sitting Dorsiflexion with 2 Knee Extended Plantarflexion 44 Inversion 27 Eversion 15 PT-OP-M Strength Start: 07/22/24 15:18 Freq: Status: Active Protocol: Document 08/25/24 15:22 CHIEF CLERK SHELTER (Rec: 08/25/24 16:14 CHIEF CLERK SHELTER Laptop) Hip Strength Hip Manual Muscle Testing L Flexion (L2) 4+ Good+ Extension (S1) 4+ Good+ Abduction 4+ Good+ R Flexion (L2) 4+ Good+ Extension (S1) 5 Normal Abduction 4+ Good+ Knee Strength Knee Manual Muscle Testing L Flexion (S2) 4+ Good+ Extension (L3) 5 Normal R Flexion (S2) 5 Normal Extension (L3) 5 Normal Ankle/Foot Strength Ankle and Foot Manual Muscle Testing L Dorsiflexion (L4) 4+ Good+ Inversion 4+ Good+ Eversion (S1) 4+ Good+ R Dorsiflexion (L4) 5 Normal Inversion 5 Normal Eversion (S1) 5 Normal PT-OP-Q Treatments Start: 07/22/24 15:18 Freq: Status: Active Protocol: Document 09/08/24 15:03 AB (Rec: 09/08/24 16:09 AB [id number]) Therapeutic Exercises Sitting Exercises AROM DF Sitting Exercise HEP Name Reps/Minutes X 12 Comments verbal and visual cues post manual Standing Exercises Heel Raises Standing Exercise on step Name Side bilateral Resistance body weight Reps/Minutes x15 BLEs Comments Added to HEP Stretch Standing Exercise gastroc and soleus On THERESA Name Side bilateral Reps/Minutes 60s x 2 each LE Comments post manual Manual Therapy Treatment Consent Patient gave verbal Yes consent for manual treatment Soft Tissue Mobilization Ankle Body Location anterior ankle and distal ant LE and calf muscles L LE Mobilization Type Cross-Friction,Instrument Assisted,Rolling Intensity/Depth Moderate Body Position Prone Comments and sidelying toe movement cupping, as well as STM performed with cups Joint Mobilizations L ankle Joint distraction caudally, distal tib fib AP and PA Direction IV for distraction III to tib fib Grade III Body Position Hooklying Reps/Duration X 5 X 5 for tib fib 2 min for distraction Talus Joint MWM TC mob L Direction AP Grade IV Body Position Standing Reps/Duration X 10 X 3 PT-OP-T Assessment and Plan Start: 07/22/24 15:18 Freq: Status: Active Protocol: Document 09/08/24 15:03 AB (Rec: 09/08/24 16:09 AB [id number]) Physical Therapy Assessment Goals ROM Impairment ROM Impairment L ankle ROM Short Term Goal (STG Pt will improve L active DF from 0 degrees to 5 degrees ) to improve function 08/25: Progressing, 2 degrees STG Duration 6 weeks Lawyer Criminal Goal (LTG) Pt will improve B active DF to 10 degrees for improved function LTG Duration 12 weeks 2 Impairment Strength Impairment BLE strength Short Term Goal (STG Pt will improve B hip abd strength, B hamstring ) strength, and L foot eversion to at least 4+/5 08/25: MET STG Duration 6 weeks MET Residential Goal (LTG) Pt will amb 0.5 miles on 7% grade at 1.5 speed on treadmill without rest break without pain in L ankle to return to hiking. LTG Duration 12 weeks 1 Impairment Balance Impairment B SLS Short Term Goal (STG Pt will demonstrate improved balance and proprioception ) with L SLS on even floor for 60s to improve function and safety 08/25: Progressing 16s, 14s, 7s STG Duration 6 weeks Lawyer Criminal Goal (LTG) Pt will demonstrate improved balance and proprioception with L SLS on foam for 60s without upper body sway for improved function. LTG Duration 12 weeks Assessment Summary Assessment Patient able to touch knee to wall post manual, with increased effort L LE, continues to require increased effort with knee to wall post stretches and manual. Physical Therapy Plan Frequency and Duration Frequency of 2x/Week Treatment Duration of 12 treatment (weeks) Plan of Care Start 07/22/24 Date Plan of Care End 10/14/24 Date Next Visit Focus/Plan Next Note Type Treatment Note Next Visit Plan Plan: L ankle distraction mob, STM to L achilles
--- NOTE | 2024-09-10 16:49 | PT.OTN ---
Current Diagnoses Other sprain of left foot, subsequent encounter (09/10/24) Physical Therapy Treatment Note PT-OP-A Visit Information Start: 07/22/24 15:18 Freq: Status: Active Protocol: Document 09/10/24 15:23 RETAIL WIRELESS ASSOCIATE (Rec: 09/10/24 16:23 RETAIL WIRELESS ASSOCIATE Laptop) Out-Patient Physical Therapy Visit Information Visit Information Visit Type Treatment Note Visit Start Time 15:21 Visit Stop Time 16:07 Visit Number 13 (PN 09/24/2024) Number of POWER BARKER Visits 0 PT-OP-B Current Condition Start: 07/22/24 15:18 Freq: Status: Active Protocol: Document 07/22/24 15:19 RETAIL WIRELESS ASSOCIATE (Rec: 07/22/24 16:55 RETAIL WIRELESS ASSOCIATE Laptop) Current Condition History of Current Condition Onset Date First sprain 2015, second sprain last year, third sprain last month Current Complaints L ankle pain and weakness History of Current Harriet amb into session without AD but wearing B ankle Condition boots, she reports wears boots for increased ankle support. Sprained my left foot 3 times now, last one was last month and I didn't do any exercises afterward. Has been doing day to day activities but unable to perform hobbies: slack lining, rock climbing, hiking, backpacking. Has been going to the gym and going up stairs which causes sharp pain at front of L foot while lifting toes up. Currently has sharp shooting pain in low back, reports back injury while in college with fall on stairs which took a while to recover from but never went to the doctor for it and is unsure if back pain and ankle injury are related. Treatment Goals Patient/Caregiver To strengthen my ankle and get some tips for how to Goals prevent future ankle sprains and how to decrease back pain. PT-OP-C Subjective Start: 07/22/24 15:18 Freq: Status: Active Protocol: Document 09/10/24 15:23 RETAIL WIRELESS ASSOCIATE (Rec: 09/10/24 16:23 RETAIL WIRELESS ASSOCIATE Laptop) OP-PT Subjective Patient Comments Patient Comments Pt reports nothing new, reports still feeling blocked at ant ankle but feels less blocked, stays at 1/10 while walking. L PROM DF 1.25 cm from wall with knee to wall at start of session. PT-OP-D Balance Start: 07/22/24 15:18 Freq: Status: Active Protocol: Document 08/25/24 15:22 RETAIL WIRELESS ASSOCIATE (Rec: 08/25/24 16:14 RETAIL WIRELESS ASSOCIATE Laptop) Balance Tests Single Limb Standing Single Limb- Right >1 min without instability Single Limb- Left 16s, 14s, 7s moderate difficulty and mild lateral upper body sway/reactions PT-OP-F Manual Assessment Start: 07/22/24 15:18 Freq: Status: Active Protocol: Document 07/22/24 15:19 RETAIL WIRELESS ASSOCIATE (Rec: 07/22/24 16:55 RETAIL WIRELESS ASSOCIATE Laptop) Manual Assessments Joint Mobility Assessment Joint Mobility Decreased PA of L talus at talocrural joint Assessment PT-OP-G Mobility & Gait Start: 07/22/24 15:18 Freq: Status: Active Protocol: Document 07/22/24 15:19 RETAIL WIRELESS ASSOCIATE (Rec: 07/22/24 16:55 RETAIL WIRELESS ASSOCIATE Laptop) OP Gait Assessment Comments Gait Comments Amb without AD, mild B knee varus, mild decreased pre swing on L PT-OP-K Range of Motion Start: 07/22/24 15:18 Freq: Status: Active Protocol: Document 08/25/24 15:22 RETAIL WIRELESS ASSOCIATE (Rec: 08/25/24 16:14 RETAIL WIRELESS ASSOCIATE Laptop) Ankle and Foot Goniometric Range of Motion Ankle and Foot L Testing Position Sitting Dorsiflexion with 2 Knee Extended Plantarflexion 44 Inversion 27 Eversion 15 PT-OP-M Strength Start: 07/22/24 15:18 Freq: Status: Active Protocol: Document 08/25/24 15:22 RETAIL WIRELESS ASSOCIATE (Rec: 08/25/24 16:14 RETAIL WIRELESS ASSOCIATE Laptop) Hip Strength Hip Manual Muscle Testing L Flexion (L2) 4+ Good+ Extension (S1) 4+ Good+ Abduction 4+ Good+ R Flexion (L2) 4+ Good+ Extension (S1) 5 Normal Abduction 4+ Good+ Knee Strength Knee Manual Muscle Testing L Flexion (S2) 4+ Good+ Extension (L3) 5 Normal R Flexion (S2) 5 Normal Extension (L3) 5 Normal Ankle/Foot Strength Ankle and Foot Manual Muscle Testing L Dorsiflexion (L4) 4+ Good+ Inversion 4+ Good+ Eversion (S1) 4+ Good+ R Dorsiflexion (L4) 5 Normal Inversion 5 Normal Eversion (S1) 5 Normal PT-OP-Q Treatments Start: 07/22/24 15:18 Freq: Status: Active Protocol: Document 09/10/24 15:23 RETAIL WIRELESS ASSOCIATE (Rec: 09/10/24 16:23 RETAIL WIRELESS ASSOCIATE Laptop) Therapeutic Exercises Sitting Exercises Intrinsic foot Sitting Exercise HEP review Name Side bilateral Reps/Minutes each Standing Exercises Heel Raises Standing Exercise on step, on floor Name Side left Resistance body weight Reps/Minutes 10x3 on step, x10 on floor Comments quivering and fatigue noted to L ankle Other Exercises HEP reveiw Other Exercise Name reviewed HEP Comments discussed upgrading TB soon for 4-way ankle Gait Training Gait Activity heel-toe Description educated on heel strike-toe off pattern gait Device Used none Surface even Distance/Duration 15 Comments educated on heel strike-toe off pattern gait, maintaining neutral hip during L toe off Manual Therapy Treatment Consent Patient gave verbal Yes consent for manual treatment Soft Tissue Mobilization Plantar fascia Body Location L Mobilization Type Rolling Intensity/Depth Moderate Body Position Supine Comments using thumbs over fascia, mod tightness noted at arch Ankle Body Location L ant tib, gastroc/soleus Mobilization Type Instrument Assisted Intensity/Depth Moderate Body Position Standing Comments cupping with active movement heel raises/toe raises Joint Mobilizations L ankle Joint distal tib fib AP and PA Direction III to tib fib Grade III Body Position Hooklying Reps/Duration 5x2 PT-OP-T Assessment and Plan Start: 07/22/24 15:18 Freq: Status: Active Protocol: Document 09/10/24 15:23 RETAIL WIRELESS ASSOCIATE (Rec: 09/10/24 16:23 RETAIL WIRELESS ASSOCIATE Laptop) Physical Therapy Assessment Goals ROM Impairment ROM Impairment L ankle ROM Short Term Goal (STG Pt will improve L active DF from 0 degrees to 5 degrees ) to improve function 08/25: Progressing, 2 degrees STG Duration 6 weeks Group Home Goal (LTG) Pt will improve B active DF to 10 degrees for improved function LTG Duration 12 weeks 2 Impairment Strength Impairment BLE strength Short Term Goal (STG Pt will improve B hip abd strength, B hamstring ) strength, and L foot eversion to at least 4+/5 08/25: MET STG Duration 6 weeks MET Group Home Goal (LTG) Pt will amb 0.5 miles on 7% grade at 1.5 speed on treadmill without rest break without pain in L ankle to return to hiking. LTG Duration 12 weeks 1 Impairment Balance Impairment B SLS Short Term Goal (STG Pt will demonstrate improved balance and proprioception ) with L SLS on even floor for 60s to improve function and safety 08/25: Progressing 16s, 14s, 7s STG Duration 6 weeks Technical Solution Architect Goal (LTG) Pt will demonstrate improved balance and proprioception with L SLS on foam for 60s without upper body sway for improved function. LTG Duration 12 weeks Assessment Summary Assessment Pt able to touch knee to wall after manual at end of session with effort and increased pain from 1/10 at beginning of session to 2/10 at end of session to ant L ankle. Pt reports she feels mobilizing talus with strap on stairs at previous sessions helps with the blocked feeling at ankle the most.
--- NOTE | 2024-09-29 17:57 | PT.OTN ---
Current Diagnoses Other sprain of left foot, subsequent encounter (09/29/24) Physical Therapy Treatment Note PT OP: Lower Back/Lower Extremity Start: 09/29/24 16:18 Freq: Status: Active Protocol: Document 09/29/24 16:19 AB (Rec: 09/29/24 17:11 AB [id number]) Out-Patient Physical Therapy Visit Information Visit Information Visit Type Treatment Note Visit Note Access Code: [email or web address] Visit Start Time 16:49 Visit Stop Time 17:05 Visit Number 14 Number of MICA PLATE LAYER HAND Visits 1 OP-PT Subjective Patient Comments Patient Comments Patient reports the blockage is saadia going away, but is still a little bit there when she does her stretch ( demonstrates soleus stretch ) Patient reports she was able to walk on treadmill 10 minutes on inclined without pain. great toe .25 cm from wall with knee to wall PROM DF L ankle start of session. Therapeutic Exercises Sitting Exercises AROM DF Sitting Exercise HEP Name Resistance level one band Reps/Minutes X 15 without band post manual and stretch then X 15 with level one bandHEP Comments post manual assist with band placement Standing Exercises mini squat Standing Exercise HEP Name Side bilateral Reps/Minutes X 15 Comments verbal and visual cues Stretch Standing Exercise gastroc and soleus On THERESA Name Side bilateral Reps/Minutes 60s x 3 each LE Comments post manual Manual Therapy Treatment Soft Tissue Mobilization Ankle Body Location L ant tib, gastroc/soleus Mobilization Type Instrument Assisted Intensity/Depth Moderate Body Position Standing Comments cupping with active movement heel raises/toe raises Joint Mobilizations Talus Joint MWM TC mob L Direction AP Grade IV Body Position Standing Reps/Duration X 10 X 3 Physical Therapy Assessment Goals ROM Impairment ROM Impairment L ankle ROM Short Term Goal (STG Pt will improve L active DF from 0 degrees to 5 degrees ) to improve function 08/25: Progressing, 2 degrees STG Duration 6 weeks Correction Goal (LTG) Pt will improve B active DF to 10 degrees for improved function LTG Duration 12 weeks 2 Impairment Strength Impairment BLE strength Short Term Goal (STG Pt will improve B hip abd strength, B hamstring ) strength, and L foot eversion to at least 4+/5 08/25: MET STG Duration 6 weeks MET Electrician Second Goal (LTG) Pt will amb 0.5 miles on 7% grade at 1.5 speed on treadmill without rest break without pain in L ankle to return to hiking. LTG Duration 12 weeks 1 Impairment Balance Impairment B SLS Short Term Goal (STG Pt will demonstrate improved balance and proprioception ) with L SLS on even floor for 60s to improve function and safety 08/25: Progressing 16s, 14s, 7s STG Duration 6 weeks Correction Goal (LTG) Pt will demonstrate improved balance and proprioception with L SLS on foam for 60s without upper body sway for improved function. LTG Duration 12 weeks Assessment Summary Assessment Great toe 1.25 cm from wall L LE with knee to wall post manual and exercise. Physical Therapy Plan Frequency and Duration Frequency of 2x/Week Treatment Duration of 12 treatment (weeks) Plan of Care Start 07/22/24 Date Plan of Care End 10/14/24 Date Next Visit Focus/Plan Next Note Type Treatment Note Next Visit Plan Plan: L ankle distraction mob, STM to L achilles PT-OP-A Visit Information Start: 07/22/24 15:18 Freq: Status: Active Protocol: Document 09/10/24 15:23 AUTOMOTIVE PAINTER (Rec: 09/10/24 16:23 AUTOMOTIVE PAINTER Laptop) Out-Patient Physical Therapy Visit Information Visit Information Visit Type Treatment Note Visit Start Time 15:21 Visit Stop Time 16:07 Visit Number 13 (PN 09/24/2024) Number of MICA PLATE LAYER HAND Visits 0 PT-OP-B Current Condition Start: 07/22/24 15:18 Freq: Status: Active Protocol: Document 07/22/24 15:19 AUTOMOTIVE PAINTER (Rec: 07/22/24 16:55 AUTOMOTIVE PAINTER Laptop) Current Condition History of Current Condition Onset Date First sprain 2015, second sprain last year, third sprain last month Current Complaints L ankle pain and weakness History of Current Harriet amb into session without AD but wearing B ankle Condition boots, she reports wears boots for increased ankle support. Sprained my left foot 3 times now, last one was last month and I didn't do any exercises afterward. Has been doing day to day activities but unable to perform hobbies: slack lining, rock climbing, hiking, backpacking. Has been going to the gym and going up stairs which causes sharp pain at front of L foot while lifting toes up. Currently has sharp shooting pain in low back, reports back injury while in college with fall on stairs which took a while to recover from but never went to the doctor for it and is unsure if back pain and ankle injury are related. Treatment Goals Patient/Caregiver To strengthen my ankle and get some tips for how to Goals prevent future ankle sprains and how to decrease back pain. PT-OP-C Subjective Start: 07/22/24 15:18 Freq: Status: Active Protocol: Document 09/10/24 15:23 AUTOMOTIVE PAINTER (Rec: 09/10/24 16:23 AUTOMOTIVE PAINTER Laptop) OP-PT Subjective Patient Comments Patient Comments Pt reports nothing new, reports still feeling blocked at ant ankle but feels less blocked, stays at 1/10 while walking. L PROM DF 1.25 cm from wall with knee to wall at start of session. PT-OP-D Balance Start: 07/22/24 15:18 Freq: Status: Active Protocol: Document 08/25/24 15:22 AUTOMOTIVE PAINTER (Rec: 08/25/24 16:14 AUTOMOTIVE PAINTER Laptop) Balance Tests Single Limb Standing Single Limb- Right >1 min without instability Single Limb- Left 16s, 14s, 7s moderate difficulty and mild lateral upper body sway/reactions PT-OP-F Manual Assessment Start: 07/22/24 15:18 Freq: Status: Active Protocol: Document 07/22/24 15:19 AUTOMOTIVE PAINTER (Rec: 07/22/24 16:55 AUTOMOTIVE PAINTER Laptop) Manual Assessments Joint Mobility Assessment Joint Mobility Decreased PA of L talus at talocrural joint Assessment PT-OP-G Mobility & Gait Start: 07/22/24 15:18 Freq: Status: Active Protocol: Document 07/22/24 15:19 AUTOMOTIVE PAINTER (Rec: 07/22/24 16:55 AUTOMOTIVE PAINTER Laptop) OP Gait Assessment Comments Gait Comments Amb without AD, mild B knee varus, mild decreased pre swing on L PT-OP-K Range of Motion Start: 07/22/24 15:18 Freq: Status: Active Protocol: Document 08/25/24 15:22 AUTOMOTIVE PAINTER (Rec: 08/25/24 16:14 AUTOMOTIVE PAINTER Laptop) Ankle and Foot Goniometric Range of Motion Ankle and Foot L Testing Position Sitting Dorsiflexion with 2 Knee Extended Plantarflexion 44 Inversion 27 Eversion 15 PT-OP-M Strength Start: 07/22/24 15:18 Freq: Status: Active Protocol: Document 08/25/24 15:22 AUTOMOTIVE PAINTER (Rec: 08/25/24 16:14 AUTOMOTIVE PAINTER Laptop) Hip Strength Hip Manual Muscle Testing L Flexion (L2) 4+ Good+ Extension (S1) 4+ Good+ Abduction 4+ Good+ R Flexion (L2) 4+ Good+ Extension (S1) 5 Normal Abduction 4+ Good+ Knee Strength Knee Manual Muscle Testing L Flexion (S2) 4+ Good+ Extension (L3) 5 Normal R Flexion (S2) 5 Normal Extension (L3) 5 Normal Ankle/Foot Strength Ankle and Foot Manual Muscle Testing L Dorsiflexion (L4) 4+ Good+ Inversion 4+ Good+ Eversion (S1) 4+ Good+ R Dorsiflexion (L4) 5 Normal Inversion 5 Normal Eversion (S1) 5 Normal PT-OP-Q Treatments Start: 07/22/24 15:18 Freq: Status: Active Protocol: Document 09/10/24 15:23 AUTOMOTIVE PAINTER (Rec: 09/10/24 16:23 AUTOMOTIVE PAINTER Laptop) Therapeutic Exercises Sitting Exercises Intrinsic foot Sitting Exercise HEP review Name Side bilateral Reps/Minutes each Standing Exercises Heel Raises Standing Exercise on step, on floor Name Side left Resistance body weight Reps/Minutes 10x3 on step, x10 on floor Comments quivering and fatigue noted to L ankle Other Exercises HEP reveiw Other Exercise Name reviewed HEP Comments discussed upgrading TB soon for 4-way ankle Gait Training Gait Activity heel-toe Description educated on heel strike-toe off pattern gait Device Used none Surface even Distance/Duration 15 Comments educated on heel strike-toe off pattern gait, maintaining neutral hip during L toe off Manual Therapy Treatment Consent Patient gave verbal Yes consent for manual treatment Soft Tissue Mobilization Plantar fascia Body Location L Mobilization Type Rolling Intensity/Depth Moderate Body Position Supine Comments using thumbs over fascia, mod tightness noted at arch Ankle Body Location L ant tib, gastroc/soleus Mobilization Type Instrument Assisted Intensity/Depth Moderate Body Position Standing Comments cupping with active movement heel raises/toe raises Joint Mobilizations L ankle Joint distal tib fib AP and PA Direction III to tib fib Grade III Body Position Hooklying Reps/Duration 5x2 PT-OP-T Assessment and Plan Start: 07/22/24 15:18 Freq: Status: Active Protocol: Document 09/10/24 15:23 AUTOMOTIVE PAINTER (Rec: 09/10/24 16:23 AUTOMOTIVE PAINTER Laptop) Physical Therapy Assessment Goals ROM Impairment ROM Impairment L ankle ROM Short Term Goal (STG Pt will improve L active DF from 0 degrees to 5 degrees ) to improve function 08/25: Progressing, 2 degrees STG Duration 6 weeks Correction Goal (LTG) Pt will improve B active DF to 10 degrees for improved function LTG Duration 12 weeks 2 Impairment Strength Impairment BLE strength Short Term Goal (STG Pt will improve B hip abd strength, B hamstring ) strength, and L foot eversion to at least 4+/5 715: MET STG Duration 6 weeks MET Correction Goal (LTG) Pt will amb 0.5 miles on 7% grade at 1.5 speed on treadmill without rest break without pain in L ankle to return to hiking. LTG Duration 12 weeks 1 Impairment Balance Impairment B SLS Short Term Goal (STG Pt will demonstrate improved balance and proprioception ) with L SLS on even floor for 60s to improve function and safety 08/25: Progressing 16s, 14s, 7s STG Duration 6 weeks Correction Goal (LTG) Pt will demonstrate improved balance and proprioception with L SLS on foam for 60s without upper body sway for improved function. LTG Duration 12 weeks Assessment Summary Assessment Pt able to touch knee to wall after manual at end of session with effort and increased pain from 1/10 at beginning of session to 2/10 at end of session to ant L ankle. Pt reports she feels mobilizing talus with strap on stairs at previous sessions helps with the blocked feeling at ankle the most.
--- NOTE | 2024-10-01 18:05 | PT.OTN ---
Current Diagnoses Other sprain of left foot, subsequent encounter (10/01/24) Physical Therapy Treatment Note PT OP: Lower Back/Lower Extremity Start: 09/29/24 16:18 Freq: Status: Active Protocol: Document 10/01/24 16:16 AB (Rec: 10/01/24 17:03 AB [id number]) Out-Patient Physical Therapy Visit Information Visit Information Visit Type Treatment Note Visit Note Access Code: [email or web address] Visit Start Time 16:19 Visit Stop Time 17:03 Visit Number 15 Number of YARN WORKER Visits 2 Progress Note Due 10/31/24 OP-PT Subjective Patient Comments Patient Comments Patient reports she is doing pretty good. Patient reports she only gets ant L foot in the morning, and then when seated at working with boots the inside of the ankle is painful close to the blockage. Ankle and Foot Goniometric Range of Motion Ankle and Foot L Testing Position Supine Dorsiflexion with 5 Knee Extended Comments great toe .5 cm from wall PROM body over ankle DF L ankle =1.5 deg with knee bent in standing. Hip Strength Hip Manual Muscle Testing L Abduction 4+ Good+ R Abduction 5 Normal Knee Strength Knee Manual Muscle Testing L Flexion (S2) 4+ Good+ R Flexion (S2) 5 Normal Ankle/Foot Strength Ankle and Foot Manual Muscle Testing L Eversion (S1) 3- Fair- Therapeutic Exercises Sitting Exercises 4-way ankle Sitting Exercise L ankle eversion Name Resistance level one level 2 level 3 band Reps/Minutes X 10 each band Comments verbal and visual cues, Pt ed to avoid moving knee and to use self tactile Manual Therapy Treatment Joint Mobilizations Talus Joint MWM TC mob L Direction AP Grade IV Body Position Standing Reps/Duration X 10 X 3 Physical Therapy Assessment Goals ROM Impairment ROM Impairment L ankle ROM Short Term Goal (STG Pt will improve L active DF from 0 degrees to 5 degrees ) to improve function 08/25: Progressing, 2 degrees STG Duration 6 weeks Halfway Goal (LTG) Pt will improve B active DF to 10 degrees for improved function LTG Duration 12 weeks 2 Impairment Strength Impairment BLE strength Short Term Goal (STG Pt will improve B hip abd strength, B hamstring ) strength, and L foot eversion to at least 4+/5 08/25: MET STG Duration 6 weeks MET 10/02/2024 eversion regressed as well as Halfway Goal (LTG) Pt will amb 0.5 miles on 7% grade at 1.5 speed on treadmill without rest break without pain in L ankle to return to hiking. 10/01/2024 Speed increased to due to patient reports she walks faster than 1.5 mph changed to 2.0 mph 4 minutes into trial at just shy of .05, incline at 7.0, able to perform to .55 miles with reports of no increased pain LTG Duration 12 weeks MET 1 Impairment Balance Impairment B SLS Short Term Goal (STG Pt will demonstrate improved balance and proprioception ) with L SLS on even floor for 60s to improve function and safety 08/25: Progressing 16s, 14s, 7s 10/01/2024 16s, 28s, 37s. all with increased sway STG Duration 6 weeks Halfway Goal (LTG) Pt will demonstrate improved balance and proprioception with L SLS on foam for 60s without upper body sway for improved function. LTG Duration 12 weeks Assessment Summary Assessment Hip abd bilaterally and R HS improved, eversion L ankle and L hamstring dec right increased strength, DF AROM with knee straight increased 3 degrees, significant progress toward balance goal, but not yet to 60 seconds and trunk control continues to be a problem. Patient met goal for ambulation on incline on treadmill this session. Patient is progressing toward goals, limited DF continues to be a problem. Physical Therapy Plan Frequency and Duration Frequency of 2x/Week Treatment Duration of 12 treatment (weeks) Plan of Care Start 07/22/24 Date Plan of Care End 10/14/24 Date Next Visit Focus/Plan Next Note Type Treatment Note Next Visit Plan Plan: L ankle distraction mob, STM to L achilles
--- NOTE | 2024-10-01 20:14 | PT.OPPN ---
Addendum entered and electronically signed by Marissa Nolasco, PT 10/14/24 16:27: POC extended 10 weeks until 12/23/24 as pt is still progressing towards all goals but has not yet met them. Original Note: Current Diagnoses Other sprain of left foot, subsequent encounter (10/01/24) Physical Therapy Progress Note PT OP: Lower Back/Lower Extremity Start: 09/29/24 16:18 Freq: Status: Active Protocol: Document 10/01/24 20:09 COMMUNITY MENTAL HEALTH WORKER (Rec: 10/01/24 20:14 COMMUNITY MENTAL HEALTH WORKER Laptop) Out-Patient Physical Therapy Visit Information Visit Information Visit Type Progress Note Physical Therapy Assessment Goals ROM Impairment ROM Impairment L ankle ROM Short Term Goal (STG Pt will improve L active DF from 0 degrees to 5 degrees ) to improve function 08/25: Progressing, 2 degrees STG Duration 6 weeks Insurance Licensing Supervisor Goal (LTG) Pt will improve B active DF to 10 degrees for improved function LTG Duration 12 weeks 2 Impairment Strength Impairment BLE strength Short Term Goal (STG Pt will improve B hip abd strength, B hamstring ) strength, and L foot eversion to at least 4+/5 08/25: MET STG Duration 6 weeks MET 10/02/2024 eversion regressed as well as Half-Way Goal (LTG) Pt will amb 0.5 miles on 7% grade at 1.5 speed on treadmill without rest break without pain in L ankle to return to hiking. 10/01/2024 Speed increased to due to patient reports she walks faster than 1.5 mph changed to 2.0 mph 4 minutes into trial at just shy of .05, incline at 7.0, able to perform to .55 miles with reports of no increased pain LTG Duration 12 weeks MET 1 Impairment Balance Impairment B SLS Short Term Goal (STG Pt will demonstrate improved balance and proprioception ) with L SLS on even floor for 60s to improve function and safety 08/25: Progressing 16s, 14s, 7s 10/01/2024 16s, 28s, 37s. all with increased sway STG Duration 6 weeks Half-Way Goal (LTG) Pt will demonstrate improved balance and proprioception with L SLS on foam for 60s without upper body sway for improved function. LTG Duration 12 weeks Assessment Summary Assessment Pt is progressing towards all goals, demonstrating improved B hip strength however decreased strength in L HS and L ankle eversion, improved DF 3 degrees, and improved balance. Pt met goal of amb on inclined treadmill, continues to be limited in balance and DF. Pt will benefit from continued skilled PT to continue progressing towards goals. Physical Therapy Plan Frequency and Duration Frequency of 2x/Week Treatment Duration of 12 treatment (weeks) Plan of Care Start 07/22/24 Date Plan of Care End 10/14/24 Date Therapeutic Interventions Therapeutic Balance Training,Gait Training,Home Exercise Program, Interventions Joint Mobilizations,Manual Therapy,Neuromuscular Re- education,Soft Tissue Mobilization,Taping,Therapeutic Activities,Therapeutic Exercises Modalities Cold Pack/Ice Massage,Hot Packs,Ultrasound
--- NOTE | 2024-10-14 17:22 | PT.OTN ---
Current Diagnoses Other sprain of left foot, subsequent encounter (10/14/24) Physical Therapy Treatment Note PT OP: Lower Back/Lower Extremity Start: 09/29/24 16:18 Freq: Status: Active Protocol: Document 10/14/24 16:18 AB (Rec: 10/14/24 17:22 AB [id number]) Out-Patient Physical Therapy Visit Information Visit Information Visit Type Treatment Note Visit Note Access Code: [email or web address] Visit Start Time 16:18 Visit Stop Time 17:06 Visit Number 16 Number of TIRE MAINTENANCE TECHNICIAN Visits 3 Progress Note Due 10/31/24 OP-PT Subjective Patient Comments Patient Comments Patient reports ankle is about the same, patient reports she has been doing the stair master and treadmill with inclines with the gym without increased pain. Therapeutic Exercises Standing Exercises DF Standing Exercise AROM Name Side bilateral Reps/Minutes X 15 Comments Post manual and stretches Stretch Standing Exercise gastroc and soleus on stairs Name Side bilateral Reps/Minutes 60s x 1 each LE Comments post manual Other Exercises Self TC mob Other Exercise Name L ankle AP HEP Resistance Level 5 band Reps/Minutes X 15 Comments Verbal/ and tactile cues Manual Therapy Treatment Soft Tissue Mobilization Ankle Body Location L ant tib, gastroc/soleus Mobilization Type Instrument Assisted Intensity/Depth Moderate Body Position Standing Comments cupping with active movement heel raises/toe raises Joint Mobilizations L ankle Joint distal tib fib AP and PA Direction III to tib fib Grade III Body Position Hooklying Reps/Duration 5x2 Talus Joint MWM TC mob L Direction AP Grade IV Body Position Standing Reps/Duration X 10 X 3 Physical Therapy Assessment Goals ROM Impairment ROM Impairment L ankle ROM Short Term Goal (STG Pt will improve L active DF from 0 degrees to 5 degrees ) to improve function 08/25: Progressing, 2 degrees STG Duration 6 weeks Engraver Tire Mold Goal (LTG) Pt will improve B active DF to 10 degrees for improved function LTG Duration 12 weeks 2 Impairment Strength Impairment BLE strength Short Term Goal (STG Pt will improve B hip abd strength, B hamstring ) strength, and L foot eversion to at least 4+/5 08/25: MET STG Duration 6 weeks MET 10/02/2024 eversion regressed as well as Nursing Home Goal (LTG) Pt will amb 0.5 miles on 7% grade at 1.5 speed on treadmill without rest break without pain in L ankle to return to hiking. 10/01/2024 Speed increased to due to patient reports she walks faster than 1.5 mph changed to 2.0 mph 4 minutes into trial at just shy of .05, incline at 7.0, able to perform to .55 miles with reports of no increased pain LTG Duration 12 weeks MET 1 Impairment Balance Impairment B SLS Short Term Goal (STG Pt will demonstrate improved balance and proprioception ) with L SLS on even floor for 60s to improve function and safety 08/25: Progressing 16s, 14s, 7s 10/01/2024 16s, 28s, 37s. all with increased sway STG Duration 6 weeks Nursing Home Goal (LTG) Pt will demonstrate improved balance and proprioception with L SLS on foam for 60s without upper body sway for improved function. LTG Duration 12 weeks Assessment Summary Assessment Plan of care end date changed as per discussion with PT Marissa and addendum to her PN. Patient reports ankle feels good end of session. Assist with band position for self TC mob set up. Physical Therapy Plan Frequency and Duration Frequency of 2x/Week Treatment Duration of 12 treatment (weeks) Plan of Care Start 07/22/24 Date Plan of Care End 12/23/24 Date Next Visit Focus/Plan Next Note Type Treatment Note Next Visit Plan Plan: L ankle distraction mob, STM to L achilles
--- NOTE | 2024-10-20 08:29 | PT.OTN ---
Current Diagnoses Other sprain of left foot, subsequent encounter (10/20/24) Physical Therapy Treatment Note PT OP: Lower Back/Lower Extremity Start: 09/29/24 16:18 Freq: Status: Active Protocol: Document 10/20/24 07:28 AB (Rec: 10/20/24 08:25 AB [id number]) Out-Patient Physical Therapy Visit Information Visit Information Visit Type Treatment Note Visit Note Access Code: [email or web address] Visit Start Time 07:33 Visit Stop Time 08:16 Visit Number 17 Number of DIRECTOR RELIGIOUS EDUCATION Visits 4 Progress Note Due 10/31/24 Precautions Precautions None OP-PT Subjective Patient Comments Patient Comments Patient reports the ankle is good, hasn't tried any hills outdoors. Therapeutic Exercises Sidelying Exercises Clamshells Side bilateral Resistance Level one band to HEP Reps/Minutes X 15 each side Comments MOnitored for form Sitting Exercises AROM DF Sitting Exercise HEP Name Resistance level 2 band Reps/Minutes X 15 without band post manual and stretch then X 15 with level one bandHEP Comments post manual assist with band placement Standing Exercises mini squat Standing Exercise HEP Squat to near chair seat not mini squat this Name session8:16 Side bilateral Resistance LEvel to band to HEP Reps/Minutes X 15 Comments verbal and visual cues Glute med isometric Standing Exercise HEP Name Side bilateral Reps/Minutes one min each side Comments review Stretch Standing Exercise gastroc and soleus on stairs Name Side bilateral Reps/Minutes 60s x 2 each LE Comments post manual Manual Therapy Treatment Consent Patient gave verbal Yes consent for manual treatment Soft Tissue Mobilization Ankle Body Location L ant tib, gastroc/soleus Mobilization Type Instrument Assisted Intensity/Depth Moderate Body Position Standing Comments cupping with active movement heel raise with knees straight and knees bent Joint Mobilizations L ankle Joint distal tib fib AP and PA Direction III to tib fib Grade III Body Position Hooklying Reps/Duration 5x2 Talus Joint MWM TC mob L Direction AP Grade IV Body Position Standing Reps/Duration X 10 X 3 Physical Therapy Assessment Goals ROM Impairment ROM Impairment L ankle ROM Short Term Goal (STG Pt will improve L active DF from 0 degrees to 5 degrees ) to improve function 08/25: Progressing, 2 degrees STG Duration 6 weeks Sales Team Manager Goal (LTG) Pt will improve B active DF to 10 degrees for improved function LTG Duration 12 weeks 2 Impairment Strength Impairment BLE strength Short Term Goal (STG Pt will improve B hip abd strength, B hamstring ) strength, and L foot eversion to at least 4+/5 08/25: MET STG Duration 6 weeks MET 10/02/2024 eversion regressed as well as Jail Goal (LTG) Pt will amb 0.5 miles on 7% grade at 1.5 speed on treadmill without rest break without pain in L ankle to return to hiking. 10/01/2024 Speed increased to due to patient reports she walks faster than 1.5 mph changed to 2.0 mph 4 minutes into trial at just shy of .05, incline at 7.0, able to perform to .55 miles with reports of no increased pain LTG Duration 12 weeks MET 1 Impairment Balance Impairment B SLS Short Term Goal (STG Pt will demonstrate improved balance and proprioception ) with L SLS on even floor for 60s to improve function and safety 08/25: Progressing 16s, 14s, 7s 10/01/2024 16s, 28s, 37s. all with increased sway STG Duration 6 weeks Jail Goal (LTG) Pt will demonstrate improved balance and proprioception with L SLS on foam for 60s without upper body sway for improved function. LTG Duration 12 weeks Assessment Summary Assessment Patient anastasiya level 2 band for squats this session, into session with reports of increased stiffness in the morning. Patient able to squat nearly to chair seat with good form. Physical Therapy Plan Frequency and Duration Frequency of 2x/Week Treatment Duration of 12 treatment (weeks) Plan of Care Start 07/22/24 Date Plan of Care End 12/23/24 Date Next Visit Focus/Plan Next Note Type Treatment Note Next Visit Plan Plan: L ankle distraction mob, STM to L achilles
--- NOTE | 2024-10-22 17:10 | PT.OTN ---
Current Diagnoses Other sprain of left foot, subsequent encounter (10/22/24) Physical Therapy Treatment Note PT OP: Lower Back/Lower Extremity Start: 09/29/24 16:18 Freq: Status: Active Protocol: Document 10/22/24 16:19 AB (Rec: 10/22/24 17:09 AB [id number]) Out-Patient Physical Therapy Visit Information Visit Information Visit Type Treatment Note Visit Note Access Code: [email or web address] Visit Start Time 16:19 Visit Stop Time 17:02 Visit Number 18 Number of FISH SKINNING MACHINE FEEDER Visits 5 Progress Note Due 10/31/24 Precautions Precautions None OP-PT Subjective Patient Comments Patient Comments Patient reports when she moves it feels like something gets caught on the inside and outside of the ankle. Gym Equipment Shuttle Balance red Details normal PATEL, head turns, scanning, catch, PF/DF Comments hands above bars, supervision Therapeutic Exercises Sitting Exercises Intrinsic foot Sitting Exercise HEP review bilateral toe yoga and arch lift/great toe Name abd Side bilateral Reps/Minutes [id number] the X 5 arch lift standing Comments verbal and tactile cues 4-way ankle Sitting Exercise L 3 way Name Resistance 3 band Reps/Minutes X 15 w/o band Comments verbal and visual cues, Pt ed to avoid moving knee and to use self tactile Manual Therapy Treatment Consent Patient gave verbal Yes consent for manual treatment Soft Tissue Mobilization Ankle Body Location gastroc soleus L Mobilization Type Cross-Friction,Instrument Assisted,Rolling Intensity/Depth Deep Body Position Standing Comments and prone IASTM titanium tool with Heel raise knee straight knee bent during bilateral heel raises X 10 med X 10 lat gastroc and X 10 med and X 10 lat soleus Neuro Re-Education Treatment Balance Activities BOUS Details 1. flat side 2. round side step u with opp LE raise Reps/Duration 1. X 10 2 X 10 Comments hands above rails, supervision, verbal cues Physical Therapy Assessment Goals ROM Impairment ROM Impairment L ankle ROM Short Term Goal (STG Pt will improve L active DF from 0 degrees to 5 degrees ) to improve function 08/25: Progressing, 2 degrees STG Duration 6 weeks Penit[facility]iary Goal (LTG) Pt will improve B active DF to 10 degrees for improved function LTG Duration 12 weeks 2 Impairment Strength Impairment BLE strength Short Term Goal (STG Pt will improve B hip abd strength, B hamstring ) strength, and L foot eversion to at least 4+/5 08/25: MET STG Duration 6 weeks MET 10/02/2024 eversion regressed as well as [facility] Goal (LTG) Pt will amb 0.5 miles on 7% grade at 1.5 speed on treadmill without rest break without pain in L ankle to return to hiking. 10/01/2024 Speed increased to due to patient reports she walks faster than 1.5 mph changed to 2.0 mph 4 minutes into trial at just shy of .05, incline at 7.0, able to perform to .55 miles with reports of no increased pain LTG Duration 12 weeks MET 1 Impairment Balance Impairment B SLS Short Term Goal (STG Pt will demonstrate improved balance and proprioception ) with L SLS on even floor for 60s to improve function and safety 08/25: Progressing 16s, 14s, 7s 10/01/2024 16s, 28s, 37s. all with increased sway STG Duration 6 weeks Pen[facility]iary Goal (LTG) Pt will demonstrate improved balance and proprioception with L SLS on foam for 60s without upper body sway for improved function. LTG Duration 12 weeks Assessment Summary Assessment Patient reports feeling looser post manual therapy, Medial L gastroc and soleus with increased areas of inc density, dec tissue mobility compared to lateral calf muscles. Physical Therapy Plan Frequency and Duration Frequency of 2x/Week Treatment Duration of 12 treatment (weeks) Plan of Care Start 07/22/24 Date Plan of Care End 12/23/24 Date Next Visit Focus/Plan Next Note Type Treatment Note Next Visit Plan Plan: L ankle distraction mob, STM to L achilles revisit, review 3 way hip
--- NOTE | 2024-10-30 12:41 | PT.OTN ---
Current Diagnoses Other sprain of left foot, subsequent encounter (10/30/24) Physical Therapy Treatment Note PT OP: Lower Back/Lower Extremity Start: 09/29/24 16:18 Freq: Status: Active Protocol: Document 10/30/24 11:34 AB (Rec: 10/30/24 12:01 AB [id number]) Out-Patient Physical Therapy Visit Information Visit Information Visit Note Access Code: [email or web address] Visit Start Time 11:36 Visit Stop Time 12:21 Visit Number 19 Number of HEALTH SCIENCES DEPARTMENT CHAIR Visits 6 Progress Note Due 11/29/24 Precautions Precautions None OP-PT Subjective Patient Comments Patient Comments Patient reports feeling stiff in the morning. Balance Tests Single Limb Standing Single Limb- Left 60 sec Hip Strength Hip Manual Muscle Testing L Abduction 4+ Good+ Knee Strength Knee Manual Muscle Testing L Flexion (S2) 5 Normal Ankle/Foot Strength Ankle and Foot Manual Muscle Testing L Eversion (S1) 5 Normal Therapeutic Exercises Standing Exercises Stretch Standing Exercise gastroc and soleus on stairs Name Side bilateral Reps/Minutes 60s x 2 each LE Comments post manual Manual Therapy Treatment Consent Patient gave verbal Yes consent for manual treatment Soft Tissue Mobilization Ankle Body Location gastroc soleus L Mobilization Type Cross-Friction,Instrument Assisted,Rolling Intensity/Depth Deep Body Position Standing Comments and prone and supine IASTM titanium tool with Heel raise knee straight knee bent during bilateral heel raises X 10 med X 10 lat gastroc and X 10 med and X 10 lat soleus also: Area if inc tissue density dec tissue mobility medial L ankle anteriorly and med and inf to medial malleolus one min each area and manual cross friction Joint Mobilizations L ankle Joint distal tib fib AP and PA Direction III to tib fib Grade III Body Position Hooklying Reps/Duration 10x3 Talus Joint MWM TC mob L Direction AP Grade IV Body Position Standing Reps/Duration X 10 X 3 Physical Therapy Assessment Goals ROM Impairment ROM Impairment L ankle ROM Short Term Goal (STG Pt will improve L active DF from 0 degrees to 5 degrees ) to improve function 08/25: Progressing, 2 degrees 10/30/2024 AROM 1 deg DF L ankle PROM Great toe .5 cm from wall with knee to wall prior to heel off floor body over ankle DF =1.5 deg post manual 1.5 cm from wall 4.5 deg and AROM DF L ankle 3 deg STG Duration 6 weeks Garage Supervisor Goal (LTG) Pt will improve B active DF to 10 degrees for improved function LTG Duration 12 weeks 2 Impairment Strength Impairment BLE strength Short Term Goal (STG Pt will improve B hip abd strength, B hamstring ) strength, and L foot eversion to at least 4+/5 08/25: MET 10/30/2024 L abd 4+, eversion 5, STG Duration 6 weeks MET 10/02/2024 eversion regressed as well as Garage Supervisor Goal (LTG) Pt will amb 0.5 miles on 7% grade at 1.5 speed on treadmill without rest break without pain in L ankle to return to hiking. 10/01/2024 Speed increased to due to patient reports she walks faster than 1.5 mph changed to 2.0 mph 4 minutes into trial at just shy of .05, incline at 7.0, able to perform to .55 miles with reports of no increased pain LTG Duration 12 weeks MET 1 Impairment Balance Impairment B SLS Short Term Goal (STG Pt will demonstrate improved balance and proprioception ) with L SLS on even floor for 60s to improve function and safety 08/25: Progressing 16s, 14s, 7s 10/01/2024 16s, 28s, 37s. all with increased sway 10/30/2024: SLS L LE without UE use 60 sec STG Duration MET Halfway Goal (LTG) Pt will demonstrate improved balance and proprioception with L SLS on foam for 60s without upper body sway for improved function. LTG Duration 12 weeks Assessment Summary Assessment Patient met STG for Balance with 60 SLS L LE. DF AROM not improved with pre manual measurement, but significant improvement post manual. Area of inc tissue density dec tissue mobility medial L ankle anteriorly and med and inf to medial malleolus with improved tissue density/mobility post manual therapy Physical Therapy Plan Frequency and Duration Frequency of 2x/Week Treatment Duration of 12 treatment (weeks) Plan of Care Start 07/22/24 Date Plan of Care End 12/23/24 Date Next Visit Focus/Plan Next Note Type Treatment Note Next Visit Plan Plan: L ankle distraction mob, STM to L achilles revisit, review 3 way hip
--- NOTE | 2024-10-30 12:45 | PT.OPPN ---
Current Diagnoses Other sprain of left foot, subsequent encounter (10/30/24) Physical Therapy Progress Note PT OP: Lower Back/Lower Extremity Start: 09/29/24 16:18 Freq: Status: Active Protocol: Document 10/30/24 12:45 DCW (Rec: 10/30/24 14:58 DCW [id number]) Out-Patient Physical Therapy Visit Information Visit Information Visit Type Progress Note Physical Therapy Assessment Impairments Impairments Balance,Functional Activities,Functional Mobility,Gait, Pain,ROM,Soft Tissue Mobility,Strength Goals ROM Impairment L ankle ROM Impairment . Short Term Goal (STG Pt will improve L active DF from 0 degrees to 5 degrees ) to improve function 08/25: Progressing, 2 degrees 10/30/2024 AROM 1 deg DF L ankle PROM Great toe .5 cm from wall with knee to wall prior to heel off floor body over ankle DF =1.5 deg post manual 1.5 cm from wall 4.5 deg and AROM DF L ankle 3 deg STG Duration 6 weeks Career Orientation Teacher Goal (LTG) Pt will improve B active DF to 10 degrees for improved function LTG Duration 12 weeks 2 Impairment BLE Strength Impairment . Short Term Goal (STG Pt will improve B hip abd strength, B hamstring ) strength, and L foot eversion to at least 4+/5 08/25: MET 10/30/2024 L abd 4+, eversion 5, STG Duration 6 weeks MET 10/02/2024 eversion regressed as well as Career Orientation Teacher Goal (LTG) Pt will amb 0.5 miles on 7% grade at 1.5 speed on treadmill without rest break without pain in L ankle to return to hiking. 10/01/2024 Speed increased to due to patient reports she walks faster than 1.5 mph changed to 2.0 mph 4 minutes into trial at just shy of .05, incline at 7.0, able to perform to .55 miles with reports of no increased pain LTG Duration 12 weeks MET 1 Impairment B SLS Impairment . Short Term Goal (STG Pt will demonstrate improved balance and proprioception ) with L SLS on even floor for 60s to improve function and safety 08/25: Progressing 16s, 14s, 7s 10/01/2024 16s, 28s, 37s. all with increased sway 10/30/2024: SLS L LE without UE use 60 sec STG Duration MET Skilled Nursing Goal (LTG) Pt will demonstrate improved balance and proprioception with L SLS on foam for 60s without upper body sway for improved function. LTG Duration 12 weeks Assessment Summary Assessment Pt has shown good progress overall, met STG for balance , showing improvements with gait quality and speed. Continue to focus on strength, activity tolerance, and L ankle mobility. Physical Therapy Plan Frequency and Duration Frequency of 2x/Week Treatment Duration of 12 treatment (weeks) Plan of Care Start 07/22/24 Date Plan of Care End 12/23/24 Date Next Visit Focus/Plan Next Note Type Treatment Note Next Visit Plan Plan: L ankle distraction mob, STM to L achilles revisit, review 3 way hip
--- NOTE | 2024-11-06 14:01 | PT.OTN ---
Current Diagnoses Other sprain of left foot, subsequent encounter (11/06/24) Physical Therapy Treatment Note PT OP: Lower Back/Lower Extremity Start: 09/29/24 16:18 Freq: Status: Active Protocol: Document 11/06/24 12:59 AB (Rec: 11/06/24 13:49 AB [id number]) Out-Patient Physical Therapy Visit Information Visit Information Visit Type Treatment Note Visit Note Access Code: [email or web address] Visit Start Time 13:01 Visit Stop Time 13:46 Visit Number 20 Number of HEAD UP OPERATOR HELPER Visits 7 Progress Note Due 11/29/24 Precautions Precautions None OP-PT Subjective Patient Comments Patient Comments PROM body over ankle mvt knee to wall prior to heel off floor, unable to move foot any further back from wall without heel off floor 0 deg DF. Patient reports feeling like stretching to much post and inf med Malleolus. Therapeutic Exercises Standing Exercises DF Standing Exercise AROM Name Side bilateral Reps/Minutes X 15 without band X 15 with level one band Comments Post manual and stretches Stretch Standing Exercise gastroc and soleus on stairs Name Side bilateral Reps/Minutes 5 min knees straight 5 min knees bent Comments post manual Manual Therapy Treatment Consent Patient gave verbal Yes consent for manual treatment Soft Tissue Mobilization Ankle Body Location gastroc soleus L also distal and lat to med malleolus Mobilization Type Cross-Friction,Instrument Assisted,Rolling Intensity/Depth Deep Body Position Standing Comments and prone and supine IASTM titanium tool with B Heel raise knee straight knee bent during bilateral heel raises X 10 med X 10 lat gastroc and X 10 med and X 10 lat soleus also: Area if inc tissue density dec tissue mobility medial L ankle anteriorly and med and inf to medial malleolus one min each area and manual cross friction ankle inv and ev X 10 3 areas distal and lat to med malleolus, with small cup post manual Also cups Joint Mobilizations L ankle Joint distal tib fib AP and PA Direction III to tib fib Grade III Body Position Hooklying Reps/Duration 10x3 Physical Therapy Assessment Goals ROM Impairment L ankle ROM Impairment . Short Term Goal (STG Pt will improve L active DF from 0 degrees to 5 degrees ) to improve function 08/25: Progressing, 2 degrees 10/30/2024 AROM 1 deg DF L ankle PROM Great toe .5 cm from wall with knee to wall prior to heel off floor body over ankle DF =1.5 deg post manual 1.5 cm from wall 4.5 deg and AROM DF L ankle 3 deg STG Duration 6 weeks Care Home Goal (LTG) Pt will improve B active DF to 10 degrees for improved function LTG Duration 12 weeks 2 Impairment BLE Strength Impairment . Short Term Goal (STG Pt will improve B hip abd strength, B hamstring ) strength, and L foot eversion to at least 4+/5 08/25: MET 10/30/2024 L abd 4+, eversion 5, STG Duration 6 weeks MET 10/02/2024 eversion regressed as well as Beamster Goal (LTG) Pt will amb 0.5 miles on 7% grade at 1.5 speed on treadmill without rest break without pain in L ankle to return to hiking. 10/01/2024 Speed increased to due to patient reports she walks faster than 1.5 mph changed to 2.0 mph 4 minutes into trial at just shy of .05, incline at 7.0, able to perform to .55 miles with reports of no increased pain LTG Duration 12 weeks MET 1 Impairment B SLS Impairment . Short Term Goal (STG Pt will demonstrate improved balance and proprioception ) with L SLS on even floor for 60s to improve function and safety 08/25: Progressing 16s, 14s, 7s 10/01/2024 16s, 28s, 37s. all with increased sway 10/30/2024: SLS L LE without UE use 60 sec STG Duration MET Beamster Goal (LTG) Pt will demonstrate improved balance and proprioception with L SLS on foam for 60s without upper body sway for improved function. LTG Duration 12 weeks Assessment Summary Assessment Great toe 2 cm from wall with knee to wall prior to heel off floor PROM DF L ankle end of session. Patient reports feeling sore around medial malleolus end of session. Physical Therapy Plan Frequency and Duration Frequency of 2x/Week Treatment Duration of 12 treatment (weeks) Plan of Care Start 07/22/24 Date Plan of Care End 12/23/24 Date Next Visit Focus/Plan Next Note Type Treatment Note Next Visit Plan Plan: L ankle distraction mob, STM to L achilles revisit, review 3 way hip possibly focus on tissue density distal to med malleolus and also lateral f/b distal tib/fib mobs
--- NOTE | 2024-11-11 18:16 | PT.OTN ---
Current Diagnoses Other sprain of left foot, subsequent encounter (11/11/24) Physical Therapy Treatment Note PT OP: Lower Back/Lower Extremity Start: 09/29/24 16:18 Freq: Status: Active Protocol: Document 11/11/24 13:01 [facility] (Rec: 11/11/24 16:13 [facility] [id number]) Out-Patient Physical Therapy Visit Information Visit Information Visit Type Treatment Note Visit Note Access Code: [email or web address] Visit Start Time 13:03 Visit Stop Time 13:43 Visit Number 21 Number of COSMETIC SALES ASSISTANT Visits 8 Progress Note Due 11/29/24 Precautions Precautions None OP-PT Subjective Patient Comments Patient Comments Pt reports she still has pain w/down stairs and hasn't hiked or climbed Therapeutic Exercises Standing Exercises SL Standing Exercise SL squat Name Side bilateral Reps/Minutes 10 ea Manual Therapy Treatment Consent Patient gave verbal Yes consent for manual treatment Soft Tissue Mobilization Ankle Body Location soleus & achilles Comments prone and standing w/DF rolling and percussion and MFR Joint Mobilizations Calcaneus Comments distraction and lat tilt c/r Tibia Comments AP tibia standing w/squat Talus Comments distraction and med glide c/r AP standing w/squat Physical Therapy Assessment Goals ROM Impairment L ankle ROM Impairment . Short Term Goal (STG Pt will improve L active DF from 0 degrees to 5 degrees ) to improve function 08/25: Progressing, 2 degrees 10/30/2024 AROM 1 deg DF L ankle PROM Great toe .5 cm from wall with knee to wall prior to heel off floor body over ankle DF =1.5 deg post manual 1.5 cm from wall 4.5 deg and AROM DF L ankle 3 deg STG Duration 6 weeks Regional Agronomist Goal (LTG) Pt will improve B active DF to 10 degrees for improved function LTG Duration 12 weeks 2 Impairment BLE Strength Impairment . Short Term Goal (STG Pt will improve B hip abd strength, B hamstring ) strength, and L foot eversion to at least 4+/5 08/25: MET 10/30/2024 L abd 4+, eversion 5, STG Duration 6 weeks MET 10/02/2024 eversion regressed as well as Halfway Goal (LTG) Pt will amb 0.5 miles on 7% grade at 1.5 speed on treadmill without rest break without pain in L ankle to return to hiking. 10/01/2024 Speed increased to due to patient reports she walks faster than 1.5 mph changed to 2.0 mph 4 minutes into trial at just shy of .05, incline at 7.0, able to perform to .55 miles with reports of no increased pain LTG Duration 12 weeks MET 1 Impairment B SLS Impairment . Short Term Goal (STG Pt will demonstrate improved balance and proprioception ) with L SLS on even floor for 60s to improve function and safety 08/25: Progressing 16s, 14s, 7s 10/01/2024 16s, 28s, 37s. all with increased sway 10/30/2024: SLS L LE without UE use 60 sec STG Duration MET Regional Agronomist Goal (LTG) Pt will demonstrate improved balance and proprioception with L SLS on foam for 60s without upper body sway for improved function. LTG Duration 12 weeks Assessment Summary Assessment Pt did have some improvement in ankle ROM after manual from about .5 in to 1.25 in knee to wall but still has significant limit. She does have dec stability on LE and does require mirror to monitor SL squat Physical Therapy Plan Frequency and Duration Frequency of 2x/Week Treatment Duration of 12 treatment (weeks) Plan of Care Start 07/22/24 Date Plan of Care End 12/23/24 Date Next Visit Focus/Plan Next Note Type Treatment Note Next Visit Plan manual to ankle for DF and start SL squatting and dynamic motion
--- NOTE | 2024-11-16 09:04 | PT.OTN ---
Current Diagnoses Other sprain of left foot, subsequent encounter (11/16/24) Physical Therapy Treatment Note PT OP: Lower Back/Lower Extremity Start: 09/29/24 16:18 Freq: Status: Active Protocol: Document 11/16/24 08:19 [facility] (Rec: 11/16/24 09:04 [facility] [id number]) Out-Patient Physical Therapy Visit Information Visit Information Visit Type Treatment Note Visit Note Access Code: [email or web address] Visit Start Time 08:20 Visit Stop Time 09:00 Visit Number 22 Number of SNAP ATTACHER Visits 0 Progress Note Due 11/29/24 Precautions Precautions None OP-PT Subjective Patient Comments Patient Comments ankle blocked which limits single leg squat Manual Therapy Treatment Soft Tissue Mobilization Ankle Body Location soleus & achilles Comments prone and standing w/DF rolling and percussion and MFR Joint Mobilizations Medial Cuneiform Joint L ankle Direction med glide c/r Body Position Supine Tibia Comments AP tibia supie c/r PF Talus Comments distraction and med glide c/r Neuro Re-Education Treatment Balance Activities BOUS Comments 1.squat blue side x10 2. step up to SL L x10 SLS Comments 1. y reach L x10 2. hip hinge w/pass 6.6 lb ball x15 then self toss x10 B 3. SL squat L x3 Physical Therapy Assessment Goals ROM Impairment L ankle ROM Impairment . Short Term Goal (STG Pt will improve L active DF from 0 degrees to 5 degrees ) to improve function 08/25: Progressing, 2 degrees 10/30/2024 AROM 1 deg DF L ankle PROM Great toe .5 cm from wall with knee to wall prior to heel off floor body over ankle DF =1.5 deg post manual 1.5 cm from wall 4.5 deg and AROM DF L ankle 3 deg STG Duration 6 weeks Custodial Goal (LTG) Pt will improve B active DF to 10 degrees for improved function LTG Duration 12 weeks 2 Impairment BLE Strength Impairment . Short Term Goal (STG Pt will improve B hip abd strength, B hamstring ) strength, and L foot eversion to at least 4+/5 08/25: MET 10/30/2024 L abd 4+, eversion 5, STG Duration 6 weeks MET 10/02/2024 eversion regressed as well as Cataloging Assistant Goal (LTG) Pt will amb 0.5 miles on 7% grade at 1.5 speed on treadmill without rest break without pain in L ankle to return to hiking. 10/01/2024 Speed increased to due to patient reports she walks faster than 1.5 mph changed to 2.0 mph 4 minutes into trial at just shy of .05, incline at 7.0, able to perform to .55 miles with reports of no increased pain LTG Duration 12 weeks MET 1 Impairment B SLS Impairment . Short Term Goal (STG Pt will demonstrate improved balance and proprioception ) with L SLS on even floor for 60s to improve function and safety 08/25: Progressing 16s, 14s, 7s 10/01/2024 16s, 28s, 37s. all with increased sway 10/30/2024: SLS L LE without UE use 60 sec STG Duration MET Cataloging Assistant Goal (LTG) Pt will demonstrate improved balance and proprioception with L SLS on foam for 60s without upper body sway for improved function. LTG Duration 12 weeks Assessment Summary Assessment improved neural tension in LLE but no change in knee to wall today with manual to pelvis. Encouraged pt to follow up with doctor regarding MRI and/or referral to ortho. balance still significant challenge for pt Physical Therapy Plan Frequency and Duration Frequency of 2x/Week Treatment Duration of 12 treatment (weeks) Plan of Care Start 07/22/24 Date Plan of Care End 12/23/24 Date Next Visit Focus/Plan Next Note Type Treatment Note Next Visit Plan manual to ankle for DF and start SL squatting and dynamic motion balance
--- NOTE | 2024-12-03 18:00 | PT.OTN ---
Current Diagnoses Other sprain of left foot, subsequent encounter (12/03/24) Physical Therapy Treatment Note PT OP: Lower Back/Lower Extremity Start: 09/29/24 16:18 Freq: Status: Active Protocol: Document 12/03/24 16:11 [facility] (Rec: 12/03/24 17:10 [facility] [id number]) Out-Patient Physical Therapy Visit Information Visit Information Visit Type Treatment Note Visit Note Access Code: [email or web address] Visit Start Time 16:18 Visit Stop Time 17:04 Visit Number 23 Number of ENGINE BUILDUP MECHANIC Visits 1 Progress Note Due 01/02/25 Precautions Precautions None OP-PT Subjective Patient Comments Patient Comments Patient reports insurance wouldn't order MRI as she hasn't been going to PT and hadn't gotten x rays. Patient reports MD has spoken to Ortho. Therapeutic Exercises Sidelying Exercises Clamshells Side bilateral Resistance Level one band to HEP Reps/Minutes X 15 each side Comments MOnitored for form Sitting Exercises Intrinsic foot Sitting Exercise HEP review bilateral toe yoga and arch lift/great toe Name abd Side bilateral Reps/Minutes [id number] the X 5 arch lift standing Comments verbal and tactile cues 4-way ankle Sitting Exercise L 3 way Name Resistance 3 band Reps/Minutes X 15 w/o band Comments verbal and visual cues, Pt ed to avoid moving knee and to use self tactile Standing Exercises SL Standing Exercise quad stretch Name Side right Reps/Minutes 60 sec X 1 Comments [address]P review [address] way hip Standing Exercise hip ext, abd and marching Name Side bilateral Resistance level 5 band above knees Reps/Minutes X 10 Comments Monitored for pain, VC avoid toe out with abd squat Standing Exercise HEP squat to chair touch Name Side bilateral Reps/Minutes X 10 with level 5 band above knees Comments monitored for pain Heel Raises Standing Exercise SL HEEL raise Name Reps/Minutes X 10 Comments VC for single LE Physical Therapy Assessment Goals ROM Impairment L ankle ROM Impairment . Short Term Goal (STG Pt will improve L active DF from 0 degrees to 5 degrees ) to improve function 08/25: Progressing, 2 degrees 10/30/2024 AROM 1 deg DF L ankle PROM Great toe .5 cm from wall with knee to wall prior to heel off floor body over ankle DF =1.5 deg post manual 1.5 cm from wall 4.5 deg and AROM DF L ankle 3 deg STG Duration 6 weeks Sponge Press Operator Goal (LTG) Pt will improve B active DF to 10 degrees for improved function 12/03/2024 great toe 2. 25 cm from wall with knee to wall PROM DF body over ankle mvt. LTG Duration 12 weeks 2 Impairment BLE Strength Impairment . Short Term Goal (STG Pt will improve B hip abd strength, B hamstring ) strength, and L foot eversion to at least 4+/5 08/25: MET 10/30/2024 L abd 4+, eversion 5, STG Duration 6 weeks MET 10/02/2024 eversion regressed as well as Group Home Goal (LTG) Pt will amb 0.5 miles on 7% grade at 1.5 speed on treadmill without rest break without pain in L ankle to return to hiking. 10/01/2024 Speed increased to due to patient reports she walks faster than 1.5 mph changed to 2.0 mph 4 minutes into trial at just shy of .05, incline at 7.0, able to perform to .55 miles with reports of no increased pain LTG Duration 12 weeks MET 1 Impairment B SLS Impairment . Short Term Goal (STG Pt will demonstrate improved balance and proprioception ) with L SLS on even floor for 60s to improve function and safety 08/25: Progressing 16s, 14s, 7s 10/01/2024 16s, 28s, 37s. all with increased sway 10/30/2024: SLS L LE without UE use 60 sec STG Duration MET Sponge Press Operator Goal (LTG) Pt will demonstrate improved balance and proprioception with L SLS on foam for 60s without upper body sway for improved function. 12/03/2024 LTG Duration 12 weeks Assessment Summary Assessment HEP progressed and condensed for discharge. Physical Therapy Plan Frequency and Duration Frequency of 2x/Week Treatment Duration of 12 treatment (weeks) Plan of Care Start 07/22/24 Date Plan of Care End 12/23/24 Date Next Visit Focus/Plan Next Note Type Discharge Summary Next Visit Plan As per discussion with PT
--- NOTE | 2024-12-03 18:26 | PT.OPDS ---
Current Diagnoses Other sprain of left foot, subsequent encounter (12/03/24) Visit Care Team Role Provider Type NAHEED Mendez Attending Provider Advanced Zinc Skimmer Primary Care Provider Referring Provider Specialty: Family Practice Address: [address] [place] [address], [id number] Phone: Fax: Email: [email or web address] Visit Number Visit Number 23 Discharge Summary PT OP: Lower Back/Lower Extremity Start: 09/29/24 16:18 Freq: Status: Active Protocol: Document 12/03/24 18:04 [facility] (Rec: 12/03/24 18:26 [facility] [id number]) Out-Patient Physical Therapy Visit Information Visit Information Visit Type Discharge Summary Physical Therapy Assessment Goals ROM Impairment L ankle ROM Impairment . Short Term Goal (STG Pt will improve L active DF from 0 degrees to 5 degrees ) to improve function 08/25: Progressing, 2 degrees 10/30/2024 AROM 1 deg DF L ankle PROM Great toe .5 cm from wall with knee to wall prior to heel off floor body over ankle DF =1.5 deg post manual 1.5 cm from wall 4.5 deg and AROM DF L ankle 3 deg STG Duration 6 weeks Automobile Assembler Goal (LTG) Pt will improve B active DF to 10 degrees for improved function 12/03/2024 great toe 2. 25 cm from wall with knee to wall PROM DF body over ankle mvt. LTG Duration 12 weeks 2 Impairment BLE Strength Impairment . Short Term Goal (STG Pt will improve B hip abd strength, B hamstring ) strength, and L foot eversion to at least 4+/5 08/25: MET 10/30/2024 L abd 4+, eversion 5, STG Duration MET [facility] Goal (LTG) Pt will amb 0.5 miles on 7% grade at 1.5 speed on treadmill without rest break without pain in L ankle to return to hiking. 10/01/2024 Speed increased to due to patient reports she walks faster than 1.5 mph changed to 2.0 mph 4 minutes into trial at just shy of .05, incline at 7.0, able to perform to .55 miles with reports of no increased pain LTG Duration MET 1 Impairment B SLS Impairment . Short Term Goal (STG Pt will demonstrate improved balance and proprioception ) with L SLS on even floor for 60s to improve function and safety 08/25: Progressing 16s, 14s, 7s 10/01/2024 16s, 28s, 37s. all with increased sway 10/30/2024: SLS L LE without UE use 60 sec STG Duration MET Automobile Assembler Goal (LTG) Pt will demonstrate improved balance and proprioception with L SLS on foam for 60s without upper body sway for improved function. 12/03/2024-n/t but pt improving w/balance in past sessions LTG Duration 12 weeks Assessment Summary Assessment Pt has been compliant w/HEP and pt has participated in balance, exercises, and manual treatment during sessions w/recent plateau in progress. She has been able to return to hiking recently w/o pain but still has pain and lack of ROM when requiring DF for activity . She has good ROM in other planes and demos indep HEP and it was adjusted during session today. It is recommended pt see Ortho and may benefit from further imaging at this time. Physical Therapy Plan Discharge Physical Therapy Discharge Reasons Plateau in Progress
== END 2024-12-08 09:33 | disposition home or self-care (01) ==
LOC: PHYS 16:15
PROVIDERS: PCP Nurse Practitioner Family; Referring Provider Nurse Practitioner Family; Visit Provider Nurse Practitioner Family
DX: S93.692D Other sprain of left foot, subsequent encounter (principal)
CPT/HCPCS: 97110; 97112; 97116; 97140; 97162

== ENCOUNTER → 2024-12-20 11:06 | Outpatient (CLI) | payer OTHER, SELFPAY ==
--- NOTE | 2024-12-20 11:07 | DI.MRI.S_ITS ---
PROCEDURE: MR ANKLE LT WO CON
== END ==
LOC: MRI 11:07
PROVIDERS: PCP Nurse Practitioner Family; Referring Provider Nurse Practitioner Family; Visit Provider Physician Assistant Surgical
DX: S96.812A Strain of other specified muscles and tendons at ankle and foot level, left foot, initial encounter (principal); S93.492A Sprain of other ligament of left ankle, initial encounter; S93.422D Sprain of deltoid ligament of left ankle, subsequent encounter; M25.572 Pain in left ankle and joints of left foot; G89.29 Other chronic pain; M25.472 Effusion, left ankle
CPT/HCPCS: 73721